=== PATIENT | female | born 1945 | race Caucasian/White ===

== ENCOUNTER → 2016-08-05 | Outpatient (CLI) | payer MEDICARE, MEDICAID | LOC: GMAJ 12:36 | PROVIDERS: ATTEND Family Medicine | DX: I50.9 Heart failure, unspecified (principal) ==

== ENCOUNTER 2017-02-25 18:01 | Emergency (ER) | payer MEDICARE, MEDICAID ==
[2017-02-25 18:20] VITALS: BP 135/67; TEMP 96.2; O2SAT 100
--- NOTE | 2017-02-25 18:42 | ED.PDOC ---
History of Present Illness - General Chief Complaint: Cardiovascular Problem Stated Complaint: low heart rate per HH Time Seen by Provider: 02/25/17 18:32 Source: patient, RN notes reviewed, family Exam Limitations: no limitations Additional Information: Per caregiver, Pt's heart rate was low today (in the 40s) and Pt was less active than usual. Pt denies complaints currently. She does have frequent PVCs on her EKG and Telemetry but she is not in any distress. - History of Present Illness Timing/Duration: 7-24 hours Severity: mild Associated Symptoms: denies symptoms - , but caregiver says "there's something off". Allergies/Adverse Reactions: Allergies NO KNOWN ALLERGY Allergy (Verified 02/25/17 18:21) Home Medications: Ambulatory Orders Albuterol Inhaler [Ventolin Hfa Inhaler] 1 puff INH Q4H PRN 03/09/16 Albuterol Sulfate Nebs [Proventil Nebs] 2.5 mg NEB RTQID PRN 03/09/16 Digoxin [Lanoxin Tab] 0.125 mg PO DAILY 03/09/16 Lasix 80 mg PO DAILY 03/09/16 Loratadine 10 mg PO DAILY 03/09/16 Metformin HCl 500 mg PO DAILY@1700 03/09/16 Plavix 75 mg PO DAILY 03/09/16 Potassium Chloride 10 meq PO BIDFD 03/09/16 Prilosec 40 mg PO ACBK 03/09/16 Zocor 20 mg PO BEDTIME 03/09/16 Duloxetine HCl 60 mg PO DAILY 02/25/17 Review of Systems - Review of Systems Constitutional: States: no symptoms reported EENTM: States: no symptoms reported Respiratory: States: no symptoms reported Cardiology: States: see HPI - asymptomatic but she does have frequent PVCs. Gastrointestinal/Abdominal: States: no symptoms reported Genitourinary: States: no symptoms reported Musculoskeletal: States: no symptoms reported Skin: States: no symptoms reported Neurological: States: no symptoms reported Endocrine: States: no symptoms reported Hematologic/Lymphatic: States: no symptoms reported Past Medical History (General) - Patient Medical History Hx Seizures: No Hx Stroke: No Hx Asthma: No Hx of COPD: No Hx Cardiac Disorders: Yes - s/p CABG Hx Congestive Heart Failure: Yes Hx Pacemaker: No Hx Hypertension: No Hx Diabetes: Yes Hx MRSA: No Surgical History: coronary bypass surgery - Vaccination History Hx Influenza Vaccination: No Hx Pneumococcal Vaccination: Yes - Social History Hx Tobacco Use: No Hx Alcohol Use: No Hx Substance Use: No Hx Physical Abuse: No Hx Emotional Abuse: No Family Medical History - Family History Mother Family History: Unknown Living Status: Age at (years of age): 89 Cause of : CAD Hx Family Asthma: Yes Hx Family Congestive Heart Failure: No Hx Family Hypertension: No Hx Family Stroke: Yes Hx Cardiac Disease: Yes Hx Family Diabetes: No Hx Family Cancer: No Father Age (years): 67 Living Status: Cause of : CHF Hx Family Asthma: No Hx Family Congestive Heart Failure: Yes Hx Family Hypertension: No Hx Family Stroke: Yes Hx Cardiac Disease: Yes Hx Family Diabetes: Yes Hx Family Cancer: No Physical Exam - Physical Exam General Appearance: Alert, Comfortable, No apparent distress, Well Developed, Well Nourished Eyes, Ears, Nose, Throat Exam: PERRL/EOMI, normal ENT inspection, pharynx normal Neck: non-tender, full range of motion, supple, normal inspection Respiratory: no respiratory distress, no accessory muscle use Cardiovascular/Chest: normal peripheral pulses, regular rate, rhythm, extra beats Gastrointestinal/Abdominal: non tender, soft Extremity: non-tender, normal inspection 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 This goes along with labs showing some dehydration. Pt ready for d/c home. Rest of labs reviewed and essentially normal. Strict return precautions given. - Results/Orders Results/Orders: Laboratory Results - last 24 hr 02/25/17 02/25/17 02/25/17 18:45 18:45 18:45 WBC 5.7 RBC 3.74 L Hgb 11.8 L Hct 34.6 L MCV 92.6 MCH 31.5 H MCHC 34.0 RDW 14.4 Plt Count 210 MPV 7.9 Absolute Neuts (auto) 4.00 Absolute Lymphs (auto) 1.10 Absolute Monos (auto) 0.50 Absolute Eos (auto) 0.10 Absolute Basos (auto) 0.00 Neutrophils % 70.5 Lymphocytes % 18.6 L Monocytes % 9.1 H Eosinophils % 1.1 Basophils % 0.7 Sodium 132 L Potassium 4.0 Chloride 97 L Carbon Dioxide 23 Anion Gap 16.0 BUN 42 H Creatinine 1.67 H BUN/Creatinine Ratio 25.1 H Random Glucose 113 H Serum Osmolality 275.8 Calcium 9.9 Phosphorus 3.6 Magnesium 1.9 Total Bilirubin 1.0 AST 36 ALT 35 Alkaline Phosphatase 75 Creatine Kinase 75 CK-MB (CK-2) 2.2 CK-MB (CK-2) % Not Reportable Troponin I 0.03 Serum Total Protein 7.4 Albumin 4.2 Globulin 3.2 Albumin/Globulin Ratio 1.3 Digoxin 2.2 H - EKG/XRAY/CT EKG: Sinus - with frequent PVCs Departure - Departure Clinical Impression: Dehydration Time of Disposition: 19:50 Disposition: Discharge to Home or Self Care Condition: Good Departure Forms: ED Discharge - Pt. Copy, Patient Portal Self Enrollment Instructions: DI for Dehydration -- Adult Referrals: Jigar Jensen MD [Primary Care Provider] - 1-5 Days Home Medications: Ambulatory Orders Albuterol Inhaler [Ventolin Hfa Inhaler] 1 puff INH Q4H PRN 03/09/16 Albuterol Sulfate Nebs [Proventil Nebs] 2.5 mg NEB RTQID PRN 03/09/16 Digoxin [Lanoxin Tab] 0.125 mg PO DAILY 03/09/16 Lasix 80 mg PO DAILY 03/09/16 Loratadine 10 mg PO DAILY 03/09/16 Metformin HCl 500 mg PO DAILY@1700 03/09/16 Plavix 75 mg PO DAILY 03/09/16 Potassium Chloride 10 meq PO BIDFD 03/09/16 Prilosec 40 mg PO ACBK 03/09/16 Zocor 20 mg PO BEDTIME 03/09/16 Duloxetine HCl 60 mg PO DAILY 02/25/17 Additional Instructions: Mild dehydration. Condition improved after eating and drinking. Return to ER if condition worsens/unable to function. Continue routine Cardiology follow-up as scheduled.
== END 2017-02-25 19:51 | disposition home or self-care (01) ==
LOC: ER 18:01
DX: E86.0 Dehydration (principal); I49.3 Ventricular premature depolarization; I50.9 Heart failure, unspecified; E11.9 Type 2 diabetes mellitus without complications; Z95.1 Presence of aortocoronary bypass graft; Z79.02 Long term (current) use of antithrombotics/antiplatelets; Z79.899 Other long term (current) drug therapy

== ENCOUNTER 2017-03-13 20:28 | Inpatient (IN) | payer MEDICARE, MEDICAID ==
[2017-03-13] MEDS ORDERED: ARIPIPRAZOLE 10 MG PO SCH (21:00)
--- NOTE | 2017-03-13 21:51 | RAD ---
Examination: XR CHEST 1 VIEW dated 03/13/2017 9:06 PM [employer] History: chf exac Comparison: 03/10/2016 Technique: Frontal view of the chest Findings: Prominence of the interstitial markings bilaterally with small bilateral pleural effusions and bibasilar atelectasis. The cardiac silhouette projects mildly enlarged. Sequela of prior CABG. Impression: Findings of mild CHF. Electronically signed by: Jigar Wise MD 03/13/2017 9:50 PM [employer]
[2017-03-13] MEDS ORDERED: metOLazone 2.5 MG TAB PO ONE (22:03)
[2017-03-13] MEDS ORDERED: FUROSEMIDE INJ 40 MG/4 ML VIAL IV ONE (22:03)
[2017-03-13] MEDS ORDERED: DIGOXIN 0.25 MG TAB PO ONE (22:03)
--- NOTE | 2017-03-13 22:11 | ED.PDOC ---
History of Present Illness - General Chief Complaint: General Stated Complaint: feeling SOB, weight gain, swelling Time Seen by Provider: 03/13/17 20:51 Source: patient, other - aregiver Exam Limitations: clinical condition - History of Present Illness Initial Comments: the patient is a 72-year-old female presenting to the emergency room with her caregiver secondary to progressive shortness of breath and swelling over the last 3-4 days. The patient does have a history of significant congestive heart failure. She was seen here in the emergency room approximately 10 days ago for a low heart rate down in the 40s. Her caregiver apparently discontinued her digoxin 5 or 6 days ago. She is now according to her caregiver approximately 10-12 pounds above her baseline weight. She does have currently some moderate increased work of breathing. She has pitting edema all the way up the posterior aspect of her legs to her buttocks and she does have some ascites. She has rales at bilateral lung bases and does get significantly short of breath with lying flat. While sitting up she oxygenates well but does still have some increased work of breathing. She has a cough that is productive of a clear sputum. No fevers. No chest pain. No syncope or near syncope. She has been taking Lasix 80 mg each morning. She does see Dr. Jensen here at the clinic. She is actually already scheduled to see her wet machine operator here tomorrow, Dr. Moss. She has a follow-up appointment with her primary care doctor in about 3 days. Timing/Duration: unsure Severity: moderate Improving Factors: nothing Worsening Factors: movement Associated Symptoms: cough, loss of appetite, malaise, shortness of breath, weakness Allergies/Adverse Reactions: Allergies NO KNOWN ALLERGY Allergy (Verified 03/13/17 20:55) Home Medications: Ambulatory Orders Albuterol Inhaler [Ventolin Hfa Inhaler] 1 puff INH Q4H PRN 03/09/16 Albuterol Sulfate Nebs [Proventil Nebs] 2.5 mg NEB RTQID PRN 03/09/16 Lasix 80 mg PO DAILY 03/09/16 Loratadine 10 mg PO DAILY 03/09/16 Metformin HCl 500 mg PO DAILY@1700 03/09/16 Plavix 75 mg PO DAILY 03/09/16 Potassium Chloride 10 meq PO BIDFD 03/09/16 Prilosec 40 mg PO ACBK 03/09/16 Zocor 20 mg PO BEDTIME 03/09/16 Duloxetine HCl 60 mg PO DAILY 02/25/17 Multiple Vitamin [Multi Vitamin] 1 tab PO 03/13/17 Review of Systems - Review of Systems Constitutional: States: malaise EENTM: States: no symptoms reported Respiratory: States: cough, orthopnea, short of breath Cardiology: States: edema Gastrointestinal/Abdominal: States: other - abdominal distention Genitourinary: States: no symptoms reported Musculoskeletal: States: no symptoms reported Skin: States: no symptoms reported Neurological: States: no symptoms reported Endocrine: States: no symptoms reported All other Systems: No Change from Baseline Past Medical History (General) - Patient Medical History Hx Seizures: No Hx Stroke: No Hx Dementia: No Hx Asthma: No Hx of COPD: No Hx Cardiac Disorders: Yes - s/p CABG Hx Congestive Heart Failure: Yes Hx Pacemaker: No Hx Hypertension: No Hx Thyroid Disease: No Hx Diabetes: Yes Hx Gastroesophageal Reflux: No Hx Renal Disease: No Hx Cancer: No Hx of HIV: No Hx Hepatitis C: No Hx MRSA: No Surgical History: other - Vaccination History Hx Tetanus, Diphtheria Vaccination: Yes Hx Influenza Vaccination: No Hx Pneumococcal Vaccination: No - Social History Hx Tobacco Use: No Hx Alcohol Use: No Hx Substance Use: No Hx Substance Use Treatment: No Hx Depression: No Feels Threatened In Home Enviroment: No Feels Threatened In a Relationship: No Hx Physical Abuse: No Hx Emotional Abuse: No Hx Suspected Abuse: No Family Medical History - Family History Mother Family History: Unknown Living Status: Age at (years of age): 93 Cause of : CAD Hx Family Asthma: Yes Hx Family Congestive Heart Failure: No Hx Family Hypertension: No Hx Family Stroke: Yes Hx Cardiac Disease: Yes Hx Family Diabetes: No Hx Family Cancer: No Father Age (years): 67 Living Status: Cause of : CHF Hx Family Asthma: No Hx Family Congestive Heart Failure: Yes Hx Family Hypertension: No Hx Family Stroke: Yes Hx Cardiac Disease: Yes Hx Family Diabetes: Yes Hx Family Cancer: No Physical Exam - Physical Exam General Appearance: Alert, Other - the patient does appear uncomfortable and does have moderate increased work of breathing. Eye Exam: bilateral normal Ears, Nose, Throat: normal ENT inspection, normal pharynx Neck: full range of motion, supple Respiratory: chest non-tender, respiratory distress - mild, decreased breath sounds - t bases along with increased rales at bases, accessory muscle use - mild to moderate, rales Cardiovascular/Chest: normal peripheral pulses, regular rate, rhythm - sinus rhythm on telemetry with frequent PACsand intermittent PVCs Peripheral Pulses: radial,right: 2+, radial,left: 2+, dorsalis pedis,right: 2+, dorsalis pedis,left: 2+ Gastrointestinal/Abdominal: non tender, soft, other - moderate ascites Rectal Exam: deferred Back Exam: no CVA tenderness, no vertebral tenderness Extremity: normal range of motion, non-tender, no calf tenderness, normal capillary refill, pedal edema 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 The patient has significant pleural effusions, ascites and peripheral edema. The patient is not hypoxic while sitting up however has a difficult time breathing when laying back. She has significant increased work of breathing with any activity. She does have shortness of breath even while sitting still. She is not having any chest pain. The patient does have significant hyponatremia as well to start with along with significant chronic renal insufficiency. For these reasons the patient will be brought in and managed as an inpatient to make sure that she does improve rather than worsen and that her sodium does not fall further with diuresis. The patient is receiving a dose of IV Lasix and oral metolazone. She 'll be placed on oxygen to reduce cardiac strain.fluid and salt restrictions will be maintained. She has also been restarted on a half dose of her digoxin. - Results/Orders Results/Orders: Laboratory Tests 03/13/17 03/13/17 03/13/17 21:15 21:15 21:15 WBC 7.9 RBC 3.91 L Hgb 12.1 Hct 35.3 L MCV 90.3 MCH 30.9 MCHC 34.4 RDW 15.1 H Plt Count 227 MPV 7.4 Absolute Neuts (auto) 6.10 Absolute Lymphs (auto) 1.00 Absolute Monos (auto) 0.50 Absolute Eos (auto) 0.10 Absolute Basos (auto) 0.10 Neutrophils % 78.2 H Lymphocytes % 12.6 L Monocytes % 6.9 Eosinophils % 1.2 Basophils % 1.1 Sodium 127 L Potassium 4.3 Chloride 92 L Carbon Dioxide 23 Anion Gap 16.3 BUN 35 H Creatinine 1.79 H BUN/Creatinine Ratio 19.6 Random Glucose 114 H Serum Osmolality 264.1 L Calcium 9.4 Magnesium 1.9 Total Bilirubin 1.0 AST 39 ALT 30 Alkaline Phosphatase 84 Creatine Kinase 167 H CK-MB (CK-2) 3.6 CK-MB (CK-2) % Not Reportable Troponin I 0.04 B-Natriuretic Peptide 802.0 H* Serum Total Protein 7.4 Albumin 4.0 Globulin 3.4 Albumin/Globulin Ratio 1.2 Urine Color Urine Appearance Urine pH Ur Specific [place] Urine Protein Urine Glucose (UA) Urine Ketones Urine Blood Urine Nitrite Urine Bilirubin Urine Urobilinogen Ur Leukocyte Esterase Urine RBC Urine WBC Ur Epithelial Cells Urine Bacteria 03/13/17 21:44 WBC RBC Hgb Hct MCV MCH MCHC RDW Plt Count MPV Absolute Neuts (auto) Absolute Lymphs (auto) Absolute Monos (auto) Absolute Eos (auto) Absolute Basos (auto) Neutrophils % Lymphocytes % Monocytes % Eosinophils % Basophils % Sodium Potassium Chloride Carbon Dioxide Anion Gap BUN Creatinine BUN/Creatinine Ratio Random Glucose Serum Osmolality Calcium Magnesium Total Bilirubin AST ALT Alkaline Phosphatase Creatine Kinase CK-MB (CK-2) CK-MB (CK-2) % Troponin I B-Natriuretic Peptide Serum Total Protein Albumin Globulin Albumin/Globulin Ratio Urine Color Yellow Urine Appearance Clear Urine pH 6.0 Ur Specific [place] <= 1.005 Urine Protein Negative Urine Glucose (UA) Negative Urine Ketones Negative Urine Blood Negative Urine Nitrite Negative Urine Bilirubin Negative Urine Urobilinogen 0.2 Ur Leukocyte Esterase Negative Urine RBC 0 Urine WBC 0-1 Ur Epithelial Cells 0-1 Urine Bacteria Rare chest x-rays consistent with mild to moderate CHF with pleural effusions and increased pulmonary vascularization. Departure - Departure Clinical Impression: Hyponatremia, Chronic renal insufficiency, stage III (moderate) Acute exacerbation of CHF (congestive heart failure) Qualifiers: Congestive heart failure type: unspecified congestive heart failure type Qualified Code(s): I50.9 - Heart failure, unspecified Disposition: Admit Patient Home Medications: Ambulatory Orders Albuterol Inhaler [Ventolin Hfa Inhaler] 1 puff INH Q4H PRN 03/09/16 Albuterol Sulfate Nebs [Proventil Nebs] 2.5 mg NEB RTQID PRN 03/09/16 Lasix 80 mg PO DAILY 03/09/16 Loratadine 10 mg PO DAILY 03/09/16 Metformin HCl 500 mg PO DAILY@1700 03/09/16 Plavix 75 mg PO DAILY 03/09/16 Potassium Chloride 10 meq PO BIDFD 03/09/16 Prilosec 40 mg PO ACBK 03/09/16 Zocor 20 mg PO BEDTIME 03/09/16 Duloxetine HCl 60 mg PO DAILY 02/25/17 Multiple Vitamin [Multi Vitamin] 1 tab PO 03/13/17 Decision To Admit - Decistion To Admit Decision to Admit Reason: Medical Nature Decision to Admit Date: 03/13/17 Decision to Admit Time: 22:18
--- NOTE | 2017-03-13 22:35 | HP ---
SUPERVISING PHYSICIAN: Jadon Salas MD CHIEF COMPLAINT: Short of breath, weight gain, edema. HISTORY OF PRESENT ILLNESS: Ms. Joyce is a 72 year-old patient that presented to the Emergency Room today with her caregiver due to some progressive worsening shortness of breath and swelling that has been occurring over the last 3 or 4 days. She does have a significant history of congestive heart failure and takes 80 of Lasix daily. She had previously been in the Emergency Room in the last 10 days for a low heart rate in the 40s and at some point her caregiver apparently decided that she needed to be taken off her digoxin which she did about 5 to 6 days previously. Her caregiver notes that she has well over a 10 to 12 pound weight gain above her baseline weight in the last week. It was noted in the Emergency Room, she had some pitting edema that was extending up to her buttocks and some mild abdominal distention. She was having some difficulty with maintaining 02 saturations in the supine position as well as showing a significant desaturation with any exertional effort. She has had a cough with clear productive sputum but no fevers or chest pains. No syncopal episodes. Her laboratory studies in the Emergency Department showed she had a white count of 7,900 with a hemoglobin of 12.1 and hematocrit 35.3 with chemistries showing an elevated BNP at 802, troponin normal at 0.04. She is noted to be hyponatremic with a sodium of 127 and serum osmolality of 264. Liver functions showed to be within normal limits. TSH was elevated at 6.62. Radiographic studies included a chest x-ray and per radiology interpretation of a single view chest, there was noted a prominence in interstitial markings bilaterally with small bilateral pleural effusions and bibasilar atelectasis with a mildly enlarged cardiac silhouette with mild congestive heart failure. Given her exacerbation and congestive heart failure, Emergency Room physician, Dr. Salas, requested the patient be admitted to the hospital for further observation, close monitoring and further treatment. Prior to admission,keanu velasco was given 40 of Lasix IV and 5 mg of Zaroxolyn p.o. with digoxin p.o. at 0.0625. She is admitted in stable condition. PAST MEDICAL HISTORY: 1. Chronic congestive heart failure without a current echocardiogram for review at time of admission. 2. Coronary artery disease. 3. Diabetes mellitus type 2, on oral therapy. 4. Hypertension. 5. Chronic anemia with a normocytic normochromic presentation. 6. Seasonal allergies. 7. Mild mental retardation. PAST SURGICAL HISTORY: 1. Coronary artery bypass graft. 2. Coronary stent placement. CURRENT MEDICATIONS: 1. Januvia 100 mg daily. 2. Simvastatin 20 mg at bedtime. 3. Micro-K 10 mEq b.i.d. 4. Omeprazole 40 mg daily. 5. Multivitamin 1 tablet daily. 6. Metformin 500 mg daily. 7. Loratadine 10 mg at bedtime. 8. Lasix 80 mg daily. 9. Duloxetine 60 mg daily. 10. Digoxin 0.125 mg daily. 11. Plavix 75 mg daily. 12. Cinnamon 2000 mg daily. 13. Aripiprazole 10 mg at bedtime,. 14. Proventil nebs 2.5 mg nebulizer q.i.d. as needed. 15. Ventolin handheld inhaler 1 puff q.i.d. as needed every 4 hours as needed p.r.n. ALLERGIES: NO KNOWN DRUG ALLERGIES. FAMILY HISTORY: Significant for cancers, coronary artery disease, diabetes and strokes. SOCIAL HISTORY: The patient lives at home with her caregiver. She has no history of smoking and does not drink alcoholic beverages. REVIEW OF SYSTEMS: CONSTITUTIONAL: General malaise with unintentional weight gain of 10 to 12 pounds from baseline weight in the last 2 weeks. HEENT: No nasal congestion, headaches, vision changes. RESPIRATORY: Significant for a cough, nonproductive with orthopnea and increased dyspnea on exertion. CARDIOVASCULAR: Noted peripheral edema bilaterally with no reported chest pains , palpitations or syncopal episodes. GASTROINTESTINAL: Mild abdominal distention but no abdominal pain, nausea, vomiting, diarrhea or change in bowel habits. GENITOURINARY: No dysuria, hematuria, polyuria or other urinary symptoms. NEUROLOGICAL: She is alert to herself and caregivers and location. No reported neurological deficits, no syncopal episodes, no vision changes. No hearing deficits. PHYSICAL EXAMINATION: VITAL SIGNS: Temperature on admission 98.2, pulse 97, blood pressure 134/81, respirations 18, saturation 100% on room air at rest. Admission weight 54.5 kg. GENERAL: The patient is alert and oriented, she appears somewhat dyspneic but is able to speak in full sentences. She appears to be in no acute distress. HEENT: Tympanic membranes are clear bilaterally. Pharynx is pink and moist without any lesions. NECK: Supple, non-tender with full range of motion. No jugular venous distention. CHEST: Some rales in bilateral bases with decreased breath sounds throughout. No wheezing or rhonchi. CARDIOVASCULAR: Regular rate and rhythm without appreciable murmurs, rubs, or gallops. ABDOMEN: Soft, non-tender, mildly distended but soft without any rebound tenderness. Bowel sounds are present. . EXTREMITIES: There is nonpitting edema to bilateral lower extremities. NEUROLOGIC: Cranial nerves II through XII are grossly intact. She is alert and oriented x 3. She does have a very flat affect but interacts appropriately with caregivers. LABORATORY: White count on admission was 7,900 with hemoglobin 12.1, hematocrit 35.3, platelet count 227,000, differential shows to be without a left shift. PT with slight elevation at 14.9, PTT elevated at 59.6. Chemistries showed a hyponatremia with a sodium of 127, potassium 4.3, BUN elevated at 35, creatinine up to 1.79. Liver functions also showed to be within normal limits. Troponin 0.04. BNP elevated at 802, TSH elevated at 6.62. Urinalysis showed to be within normal limits. Digoxin level is loess than 0.03. RADIOLOGY: Chest x-ray per radiology interpretation, single view chest shows prominent interstitial markings bilaterally with small pleural effusions. Findings consistent with mild congestive heart failure. ASSESSMENT: 1. Acute on chronic exacerbation of congestive heart failure, unknown type with no echocardiogram available for review currently. Etiology secondary to excessive water intake and poor medical compliance with digoxin. 2. Moderate electrolyte imbalance with a hyponatremia secondary to acute fluid overload. 3. Coronary artery disease. 4. Diabetes mellitus type 2 on oral therapy. 5. Hypertension. 6. Chronic seasonal allergies. 7. Chronic anemia with a normocytic normochromic presentation. PLAN: The patient is to be admitted to the medical/surgical floor for ongoing treatment of exacerbation of congestive heart failure. She will be on fluid restriction to 1500 cc less a day as well as salt restrictions. We will go ahead and diurese her with additional Lasix of 40 every 8 hours and monitor her labs closely and her output. She will be given supplemental oxygen as needed. I will go ahead and start her on low-dose nitro patch of 0.2. Will resume her home medications once they have been updated and verified. She will be on DVT prophylaxis as per protocol, plan to repeat laboratory studies and watch her closely in anticipation of length of stay to be at least 2 to 3 days. Until discharge, we will continue to monitor her closely and treat appropriately. She does have an appointment with Dr. Moss already scheduled int he morning. We will follow with this and make sure she has a consultation in the morning with Dr. Moss if possible. #[id number] [facility]
[2017-03-13] MEDS ORDERED: SODIUM CHLORIDE 0.9% (FLUSH) 10 ML SYG IV PRN (22:40)
[2017-03-13] MEDS ORDERED: NITROGLYCERIN 0.4 MG 25 EA TAB SL PRN (22:40)
[2017-03-13] MEDS ORDERED: IV SET AND CAP CHANGE INJ INJ SCH (23:00)
[2017-03-13] MEDS ORDERED: DEXTROSE 50% 25 GM/50 ML SYG IV PRN (23:35)
[2017-03-13] MEDS ORDERED: GLUCAGON INJ 1 MG VIAL SUBCU PRN (23:35)
[2017-03-13] MEDS ORDERED: ARIPiprazole 5 MG TAB ONE (23:52)
[2017-03-13] MEDS: LORATADINE 10 MG TAB PO SCH (23:55)
--- NOTE | 2017-03-14 00:15 | PCM.CORE ---
Physician DVT/VTE - Nurse DVT Assessment & Total Each Risk Factor Represents 3 Points: Medical PT with Hx of IN, CHF, Severe infection/sepsis Each Risk Factor Represents 2 Points: Age 60-74 Each Risk Factor is 1 Point: Varicose Veins/Edema Legs DVT Assessment Score: 6 - 5 or more Very High Risk Treatments: Early Ambulation *, Sequential Compression Device Pharmacological: Enoxaparin 40mg SQ Daily
[2017-03-14] MEDS: FUROSEMIDE INJ 40 MG/4 ML VIAL IV SCH ×2 (05:50→13:43)
--- NOTE | 2017-03-14 06:43 | RAD ---
EXAM: Two view chest. INDICATION: CHF. COMPARISON: Chest x-ray: 03/13/2017. FINDINGS: There is mild pulmonary vascular congestion with interstitial edema. Small pleural effusions are present. Heart is enlarged. There is no pneumothorax. Median sternotomy wires are noted. IMPRESSION: Mild CHF exacerbation, similar to the prior Electronically signed by: Kayden Samuels MD 03/14/2017 6:42 AM [employer] Workstation: [employer]
[2017-03-14] MEDS ORDERED: DULoxetine HCL 30 MG CAP PO ONE (06:59)
[2017-03-14] MEDS ORDERED: POTASSIUM CHLORIDE 10 MEQ TAB PO ONE (07:01)
[2017-03-14] MEDS ORDERED: FUROSEMIDE 40 MG TAB ONE (07:01)
[2017-03-14] MEDS ORDERED: OMEPRAZOLE CAP 20 MG CAP ONE (07:01)
[2017-03-14] MEDS ORDERED: SITagliptin 50 MG TAB PO ONE (07:01)
[2017-03-14] MEDS ORDERED: ENOXAPARIN SODIUM 30 MG/0.3 ML SYG SUBCU ONE (07:02)
[2017-03-14] MEDS: INSULIN LISPRO 100 UNITS/ML PEN SUBCU SCH ×4 (07:12→21:04)
[2017-03-14] MEDS: CLOPIDOGREL 75 MG TAB PO SCH (08:02)
[2017-03-14] MEDS: ENOXAPARIN SODIUM 30 MG/0.3 ML SYG SUBCU SCH (08:48)
[2017-03-14] MEDS: DULoxetine HCL 30 MG CAP PO SCH (08:48)
[2017-03-14] MEDS: SITagliptin 50 MG TAB PO SCH (08:48)
[2017-03-14] MEDS: POTASSIUM CHLORIDE 10 MEQ TAB PO SCH ×2 (08:51→17:02)
[2017-03-14] MEDS: PANTOPRAZOLE SODIUM TAB 40 MG PO SCH (08:58)
[2017-03-14] MEDS: MULTIPLE VITAMIN 1 EA TAB PO SCH (08:58)
[2017-03-14] MEDS: FUROSEMIDE 40 MG TAB PO SCH (08:58)
[2017-03-14] MEDS ORDERED: NON-FORMULARY MEDICATION 1 EA MIS (Omeprazole [Omeprazole] 40 MG) PO SCH (09:00)
[2017-03-14] MEDS ORDERED: DIGOXIN 0.125 MG TAB PO SCH (09:00)
[2017-03-14] MEDS ORDERED: ENOXAPARIN SODIUM 40 MG/0.4 ML SYG SUBCU SCH (09:00)
[2017-03-14] MEDS ORDERED: CINNAMON PO SCH (09:00)
[2017-03-14] MEDS: ACETAMINOPHEN 325 MG TAB PO PRN (11:17)
--- NOTE | 2017-03-14 20:33 | PN ---
DATE: 03/14/17 SUPERVISING PHYSICIAN: Jadon Salas M.D. SUBJECTIVE: The patient is showing much less edema today compared to admission. Her work to breathe is significantly decreased. She continues to be somewhat short of breath with exertional effort and has good results with IV Lasix. The patient did go see Dr. Moss today in the clinic. OBJECTIVE: VITAL SIGNS: Temperature 97.8, pulse 88, blood pressure 110/73, respirations 20, satting 98% on room air. I's and O's show a negative balance of 3280. Her weight has gone down from admission of 55.3 to 54.6 kg. CHEST: Lungs are diminished towards the bases with just very faint rale heard bilaterally but much improved from previous days. No rhonchi or wheezing. HEART: Regular rate and rhythm. ABDOMEN: Soft, non-tender. Positive bowel sounds. EXTREMITIES: There is no edema noted today. NEUROLOGIC: She is alert and oriented times three. LABORATORY: Sodium remain low at 127, potassium 3.8, BUN 36, creatinine 1.75, glucose has been 114 to 176, calcium 9.4. Echocardiogram from Dr. Moss' office shows an ejection fraction of 40 to 55% with moderate to severe pulmonary hypertension. RADIOLOGY: Chest x-ray today shows a mild congestive heart failure exacerbation similar to prior films. ASSESSMENT: 1. Acute on chronic congestive heart failure with moderately severe dilated cardiomyopathy and significant valvular dysfunction exacerbated by excessive water intake and poor medical compliance with Digoxin. 2. Moderate electrolyte imbalance with hyponatremia secondary to acute fluid overload. 3. Coronary artery disease. 4. Diabetes mellitus type 2 on oral therapy. 5. Hypertension. 6. Seasonal allergies. 7. Chronic anemia with a normocytic normochromic presentation. PLAN: The patient is doing well. Will continue with Lasix at 40 mg every 8 hours today and then transition her to 80 mg daily p.o. in the morning. She will continue on a fluid restriction of 1500 mL or less a day with salt restriction as well. I will keep her Nitro patch on until the morning until we can clinically reassess. Will repeat chest x-ray in the morning as well as laboratory studies to fully evaluate electrolytes and monitor her I's and O's closely. Anticipate hopefully being able to discharge tomorrow. Until then, will continue to monitor and treat appropriately. #[id number] [facility]
[2017-03-14] MEDS: SIMVASTATIN 20 MG TAB PO SCH (21:04)
[2017-03-14] MEDS: ARIPiprazole 5 MG TAB PO SCH (21:04)
[2017-03-14] MEDS: LORATADINE 10 MG TAB PO SCH (21:04)
[2017-03-14] MEDS ORDERED: diphenhydrAMINE HCL 25 MG CAP PO ONE (22:59)
[2017-03-15] MEDS: PANTOPRAZOLE SODIUM TAB 40 MG PO SCH (06:36)
--- NOTE | 2017-03-15 07:12 | RAD ---
Procedure: XR CHEST 2 VIEWS Exam Date: 03/15/2017 Ordering Provider: Pawel Craig NP Clinical Indication: chf Comparison: 03/14/2017 Findings: Residuals of thoracic surgery. Cardiomediastinal silhouette is stable. Focal lung consolidation: Improving bibasilar opacities. Pleural effusion: Small bilateral pleural effusions. Pneumothorax: None Bones and soft tissues: Nonacute Impression: 1. Improving CHF with small bilateral pleural effusions. Electronically signed by: Madi Harrison MD 03/15/2017 7:10 AM [facility]
[2017-03-15] MEDS: ACETAMINOPHEN 325 MG TAB PO PRN ×2 (07:45→20:29)
[2017-03-15] MEDS: INSULIN LISPRO 100 UNITS/ML PEN SUBCU SCH ×4 (08:10→22:07)
[2017-03-15] MEDS: DULoxetine HCL 30 MG CAP PO SCH (08:30)
[2017-03-15] MEDS: CLOPIDOGREL 75 MG TAB PO SCH (08:35)
[2017-03-15] MEDS: POTASSIUM CHLORIDE 10 MEQ TAB PO SCH ×2 (08:36→17:28)
[2017-03-15] MEDS: ENOXAPARIN SODIUM 30 MG/0.3 ML SYG SUBCU SCH (08:36)
[2017-03-15] MEDS: MULTIPLE VITAMIN 1 EA TAB PO SCH (09:25)
[2017-03-15] MEDS: SITagliptin 50 MG TAB PO SCH (09:25)
[2017-03-15] MEDS: FUROSEMIDE 40 MG TAB PO SCH (09:25)
[2017-03-15] MEDS: DIGOXIN 0.125 MG TAB PO SCH (12:32)
[2017-03-15] MEDS ORDERED: LISINOPRIL 5 MG TAB PO ONE (13:32)
--- NOTE | 2017-03-15 15:11 | PN ---
DATE: SUPERVISING PHYSICIAN: Jadon Salas M.D. SUBJECTIVE: The patient is sitting up on the side of her bed. She has no complaints of shortness of breath, chest pain, nausea, vomiting or diarrhea. OBJECTIVE: VITAL SIGNS: She is afebrile, heart rate 88, blood pressure 128/71, respiratory rate 18, O2 sat is 94% on room air. RESPIRATORY: Essentially clear to auscultation bilaterally. There are a few scattered crackles in the left upper lobe. CARDIAC: Regular rate and rhythm. ABDOMEN: Soft, nondistended, non -tender. Bowel sounds are positive. EXTREMITIES: No cyanosis, clubbing or edema. NEUROLOGIC: She is awake and alert, oriented times three. LABORATORY: Sodium 128, potassium 3.6, chloride 91, carbon dioxide 26, BUN 51, creatinine 1.78. Serum osmolality has improved to 274.7. White count 6, hemoglobin 11.5, hematocrit 34.1. RADIOLOGY: Chest x-ray shows improving congestive heart failure with small bilateral pleural effusions. All other labs and films have been reviewed via the EMR. ASSESSMENT: 1. Acute on chronic congestive heart failure with moderate to severe dilated cardiomyopathy and significant valvular dysfunction exacerbated be excessive water intake and poor medical compliance with digoxin. 2. Moderate electrolyte imbalance with hyponatremia secondary to acute fluid overload that has improved. 3. Coronary artery disease. 4. Diabetes mellitus type 2 on oral therapy. 5. Hypertension. 6. Seasonal allergies. 7. Chronic anemia with normocytic normochromic presentation. PLAN: We will continue present supportive care. She saw Dr. Moss yesterday and he recommended that we start her on Coreg and Lisinopril, so I have started a low dose of Coreg at 3.125 mg b.i.d. and Lisinopril 5 mg daily. I have also ordered dry trays in addition to her fluid restrictions. I will recheck her electrolytes in the morning. Will monitor how she does on the new medications and send her home tomorrow. She will also continue on the digoxin at this time and will need a followup with Dr. Moss as well as Dr. Jensen on discharge. Will continue to monitor closely and follow as needed. Dr. Salas is the collaborating physician available for consultation. #[id number] [facility]
[2017-03-15] MEDS ORDERED: LISINOPRIL 5 MG TAB ONE (15:48)
[2017-03-15] MEDS: CARVEDILOL 3.125 MG TAB PO SCH ×2 (17:28→20:30)
[2017-03-15] MEDS: ARIPiprazole 5 MG TAB PO SCH (20:29)
[2017-03-15] MEDS: SIMVASTATIN 20 MG TAB PO SCH (20:30)
[2017-03-15] MEDS: LORATADINE 10 MG TAB PO SCH (20:30)
[2017-03-16] MEDS: PANTOPRAZOLE SODIUM TAB 40 MG PO SCH (06:24)
[2017-03-16] MEDS: INSULIN LISPRO 100 UNITS/ML PEN SUBCU SCH ×2 (08:18→12:30)
[2017-03-16] MEDS: POTASSIUM CHLORIDE 10 MEQ TAB PO SCH (08:18)
[2017-03-16] MEDS: DULoxetine HCL 30 MG CAP PO SCH (08:59)
[2017-03-16] MEDS: CLOPIDOGREL 75 MG TAB PO SCH (08:59)
[2017-03-16] MEDS: SITagliptin 50 MG TAB PO SCH (08:59)
[2017-03-16] MEDS: CARVEDILOL 3.125 MG TAB PO SCH (08:59)
[2017-03-16] MEDS: FUROSEMIDE 40 MG TAB PO SCH (08:59)
--- NOTE | 2017-03-16 08:59 | DS ---
SUPERVISING PHYSICIAN: Jadon Salas MD DISCHARGE DIAGNOSIS: 1. Acute on chronic congestive heart failure with moderate to severe dilated cardiomyopathy and significant valvular dysfunction exacerbated be excessive water intake and poor medical compliance with digoxin. 2. Moderate electrolyte imbalance with hyponatremia secondary to acute fluid overload, improved. 3. Coronary artery disease. 4. Diabetes mellitus, type 2, on oral therapy. 5. Hypertension. 6. Seasonal allergies. 7. Chronic anemia with normocytic/normochromic presentation. HISTORY OF PRESENT ILLNESS: This is a 72-year-old female patient that presented to the Emergency Room on the day of admission with her caregiver due to some progressive worsening shortness of breath and swelling that had occurred the last prior 3 to 4 days. She has a significant history of congestive heart failure and takes about 80 mg of Lasix daily. She had been in the Emergency Room in the previous 10 days for a low heart rate in the 40s and at some point her caregiver apparently decided that she needed to be taken off her digoxin, which she did about 5 to 6 days prior to her admission. Her caregiver also notes that she has had approximately a 10 to 12 pound weight gain above her baseline weight in the last week. It was noted in the Emergency Room, she had some pitting edema that was extending up to her buttocks and some mild abdominal distention. She was having some difficulty with maintaining 02 saturations when lying down and showed a significant desaturation with any exertional effort. She had a cough with clear productive sputum, but no fevers or chest pains, no syncopal episodes. Her laboratory studies in the Emergency Department showed she had a white count of 7,900 with a hemoglobin of 12.1 and hematocrit 35.3 with chemistries showing an elevated BNP at 802, troponin normal at 0.04. She was hyponatremic with a sodium of 127 and serum osmolality of 264. Liver functions were within normal limits. TSH was elevated at 6.62. Radiographic studies included a chest x-ray and and there was noted a prominence in interstitial markings bilaterally with small bilateral pleural effusions and bibasilar atelectasis with a mildly enlarged cardiac silhouette with mild congestive heart failure. The patient was admitted to the hospital. Prior to admission, she was given Lasix 40 mg, Zaroxolyn 5 mg and dig p.o. at 0.0625. She was admitted in stable condition. HOSPITAL COURSE: She was diuresed quite heavily over her hospital stay. She saw Dr. Moss and he recommended she be place on a low dose of Coreg as well as an RIDDHI inhibitor for congestive heart failure. At this time, we do not have the echocardiogram report from Dr. Moss' office, but we have his recommendations. Her vital signs remained stable. Her dyspnea is mostly resolved. She continues to have a low sodium in the 127 to 128 range in spite of her fluid restrictions. Her potassium has been stable as well with a creatinine of approximately 1.8 with a baseline of about 1.6 to 1.7. She will be discharged home today in stable condition. DISCHARGE PLAN: The patient will be discharged home in stable condition. She is to resume her previous diet which includes a fluid restriction of about 1500 mL per day. She is to continue taking her digoxin as well as Coreg and lisinopril. She is to have a followup with her primary care physician, Jigar Jensen MD, in the next 2 weeks. It is unclear whether she has home health, so we will need to figure out her home health status prior to discharge. Otherwise, she is to followup with Dr. Jensen or return to the hospital for any problems or complications. DISCHARGE MEDICATIONS: 1. Proventil nebulizer. 2. Albuterol inhaler. 3. Loratadine. 4. Duloxetine. 5. Multivitamin. 6. Januvia. 7. Abilify. 8. Cinnamon. 9. Metformin. 10. Simvastatin. 11. Omeprazole. 12. Micro-K. 13. Plavix. 14. Lasix. 15. Digoxin. 16. Carvedilol. 17. Lisinopril. Dr. Salas is the collaborating physician and available for consultation. #[id number] [facility]
[2017-03-16] MEDS: MULTIPLE VITAMIN 1 EA TAB PO SCH (09:00)
[2017-03-16] MEDS: ENOXAPARIN SODIUM 30 MG/0.3 ML SYG SUBCU SCH (09:00)
[2017-03-16 11:31] VITALS: BP 110/77; TEMP 97.8; O2SAT 98
[2017-03-16] MEDS: DIGOXIN 0.125 MG TAB PO SCH (12:32)
== END 2017-03-16 12:40 | disposition home health service (06) | DRG 292 ==
LOC: ER 20:28 → OBSVTOIN 22:34 → MS 22:34
PROVIDERS: ADMIT Nurse Practitioner Family; ATTEND Nurse Practitioner Acute Care
DX: I13.0 Hypertensive heart and chronic kidney disease with heart failure and stage 1 through stage 4 chronic kidney disease, or unspecified chronic kidney disease (principal); E87.1 Hypo-osmolality and hyponatremia; I50.9 Heart failure, unspecified; N18.3 Chronic kidney disease, stage 3 (moderate); I25.10 Atherosclerotic heart disease of native coronary artery without angina pectoris; E11.9 Type 2 diabetes mellitus without complications; D64.9 Anemia, unspecified; J30.2 Other seasonal allergic rhinitis; I42.0 Dilated cardiomyopathy; Z79.02 Long term (current) use of antithrombotics/antiplatelets; Z79.84 Long term (current) use of oral hypoglycemic drugs; Z95.1 Presence of aortocoronary bypass graft

== ENCOUNTER → 2017-04-10 | Outpatient (CLI) | payer MEDICARE, MEDICAID | END | disposition home or self-care (01) | LOC: GMAJ 15:28 | PROVIDERS: ATTEND Family Medicine | DX: I50.9 Heart failure, unspecified (principal) ==

== ENCOUNTER → 2017-04-11 | Outpatient (CLI) | payer MEDICARE, MEDICAID ==
--- NOTE | 2017-04-14 10:32 | MAM ---
EXAM DESCRIPTION: 3D Screening BILATERAL : Digital Mammography. CLINICAL HISTORY: 72 years Female SCREENING . No complaints. No family history of breast cancer. Postmenopausal. No HRT. COMPARISON: 2-D digital screening bilateral study on 10/16/2012.. No prior reports available. TECHNIQUE: Bilateral CC and MLO projection full-field images, 3-D tomosynthesis digital mammographic technique. Also bilateral synthesized CC/ MLO full-field images. CAD not utilized. FINDINGS: The breast parenchymal density pattern is: Extremely dense breast tissue, which lowers the sensitivity of mammography. No nipple retraction Bilateral symmetric skin thickening. New bilateral groups of heterogeneous calcifications are seen since the prior study similar to pre-existing groups of heterogeneous calcifications. Calcifications are almost predominantly round with varying sizes. Also bilateral solitary microcalcifications. No focal, stellate mass or density, focal asymmetry , and no suspicious microcalcifications bilaterally. Stable mammograms compared to prior study, taking into account differences in mammographic technique IMPRESSION: BI-RADS CATEGORY: 0 - INCOMPLETE- Need additional imaging evaluation. FOLLOW-UP: Recall for additional imaging: Bilateral 3-D tomosynthesis full field LM images and bilateral targeted breast ultrasound. Written communication concerning the IMPRESSION and Follow-up, will be mailed to the patient and referring health care provider. Electronically signed by: Meek Barrera MD 04/14/2017 10:31 AM [employer]
== END ==
LOC: MAMMO 16:38
PROVIDERS: ATTEND Family Medicine
DX: Z12.31 Encounter for screening mammogram for malignant neoplasm of breast (principal)
CPT/HCPCS: 77063; G0202

== ENCOUNTER 2017-04-17 16:07 | Inpatient (IN) | payer MEDICARE, MEDICAID ==
--- NOTE | 2017-04-17 16:08 | HP ---
HISTORY OF PRESENT ILLNESS: This 72 year-old white female is a direct admission from Dr. Jensen' office. He last saw her in the clinic about a week before and she had some slight improvement in her chest x-ray, but did have persistence of the bilateral effusions. She has seen Dr. Moss approximately a week ago and Digoxin and potassium were decreased, and she was started on Spironolactone with her Lasix decreased from 80 in the morning and evening to 80 in the morning and 40 at night. She has been on fluid restrictions. Very poor appetite. Slight weight gain noted recently. She generally feels worse with shortness of breath even at rest but worse on exertion. She is cared for by her niece at home. Last month she was in [facility] and had congestive heart failure with hyponatremia. She was discharged after a short observation stay and while visiting a prosecuting attorney clinic in [place] with her niece, had to be entered into the hospital in [place] for 11 days and was not getting better. She eventually was referred to [facility] in [place] with congestive heart failure and pneumonia for an additional 7 to 10 days, the actual records of which we are requesting. The fact that she has been in the hospital now 4 times recently in the last month and is getting worse requires specific intervention and assistance as possible. Awaiting on repeat chest x- ray to see if therapeutic thoracentesis may assist in some of her significant dyspnea. She does have orthopnea. She has pedal edema. PAST MEDICAL HISTORY: 1. Worsening congestive heart failure with the actual echocardiogram showing the etiology of which is still not available. Recent beta natriuretic peptide was 1,780. Worsening symptoms with further cardiological intervention and followup suggested. 2. History of hyponatremia, severe, results 125. 3. Recent renal insufficiency. 4. Diabetes mellitus type 2. 5. History of hypertension. 6. History of coronary artery disease with bypass grafting into 4 vessels in the past. PAST SURGICAL HISTORY: 1. Coronary artery bypass grafting to 4 vessels. CURRENT MEDICATIONS: ALLERGIES: FAMILY HISTORY: Positive for coronary artery disease, strokes and diabetes. 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 REVIEW OF SYSTEMS: Recent weight gain recently. No fever or chills. HEENT: No hearing or vision deficits otherwise evident. LUNGS: Worsening shortness of breath especially aggravated by exertion. CARDIOVASCULAR: No significant chest pain but an occasional irregular pulse evident. GASTROINTESTINAL: Appetite is down. She has had some nausea. She has frequent belching and burping. Somewhat constipated. No blood in the stools. GENITOURINARY: No dysuria. EXTREMITIES: Some increasing edema state is noted. NEUROLOGIC: No focal weakness is evident but she is weak generally. PHYSICAL EXAMINATION: VITAL SIGNS: Afebrile, pulse 74, blood pressure 110/77, respirations 17, room air 95% saturation. Weight 63.5 kilos on bed scale. GENERAL: The patient is fairly alert, though has a history of mental retardation since a child. The niece is present to assist with obtaining the history. HEENT: Unremarkable. NECK: Supple. No adenopathy. No carotid bruits. CHEST: Lungs have some diminished breath sounds bilaterally. The patient is able to take fairly deep breaths with some clearing of some basilar rhonchi, especially on the right with deep breathing. CARDIOVASCULAR: Has some irregular beats with rhythm strip showing ventricular bigeminy. ABDOMEN: Mainly soft with no organomegaly, masses or tenderness. Bowel tones are somewhat diminished. EXTREMITIES: There is about a 2 to 3+ pitting edema both lower extremities, fairly good range of motion. NEUROLOGIC: No focal neurological deficits. The patient is pleasant and is able to carry on a fairly good conversation and is fairly aware of her past history. LABORATORY: BNP is 1,090 and sodium is 125 on preliminary results of laboratory tests requested. RADIOLOGY: Chest x-ray is pending. ASSESSMENT: 1. Chronic congestive heart failure of undetermined type with elevated beta natriuretic peptide with an acute exacerbation. 2. Bilateral pleural effusions apparently worsening with repeat x-rays pending at this time. The patient may benefit from therapeutic thoracentesis to be evaluated. 3. Hyponatremia, results 125. 4. Chronic mental retardation since a child. 5. Hypertension. 6. Diabetes mellitus type 2. 7. Chronic renal insufficiency. 8. Coronary artery disease with coronary bypass grafting to 4 vessels. 9. Acute dysrhythmia with ventricular bigeminy and frequent PVCs of a unifocal nature. PLAN: The patient is admitted for gentle diuresis and reevaluation. Dr. Higgins has been consulted to evaluate as to whether thoracentesis would assist with her ongoing symptoms. Try to get a sputum test. Try low dose of Nitroglycerin patch. Consider restarting Digoxin, but will have Dr. Moss reevaluate her in the morning. Results of recent echocardiogram will be available at that time as she sees him again in the clinic. Check TSH. Put on fluid restrictions. Special attention to avoid falls. Placed on SCDs for DVT prophylaxis. Will hold Lovenox until after a thoracentesis if it is indicated. Close followup with Dr. Jensen upon completion. Will reevaluate and may eventually benefit by medicine such as Entresto under Dr. Moss and Dr. Jensen' supervision. Continue to observe with fluid restrictions and diuresis. #[id number] and [id number] [facility]
[2017-04-17] MEDS ORDERED: NITROGLYCERIN 0.4 MG 25 EA TAB SL PRN (18:02)
[2017-04-17] MEDS ORDERED: FUROSEMIDE INJ 20 MG/2 ML VIAL IV ONE (18:02)
[2017-04-17] MEDS ORDERED: SIMETHICONE 80 MG TAB PO PRN (18:10)
[2017-04-17] MEDS ORDERED: BISACODYL TAB 5 MG TAB PO PRN (18:20)
--- NOTE | 2017-04-17 18:24 | PCM.CORE ---
Physician DVT/VTE - 3-4 High Risk Pharmacological: Enoxaparin 40 mg SQ Daily
[2017-04-17] MEDS ORDERED: NITROGLYCERIN 0.1 MG/HR PATCH TD SCH (18:30)
[2017-04-17] MEDS: SODIUM CHLORIDE 0.9% (FLUSH) 10 ML SYG IV PRN ×2 (18:40→19:00)
[2017-04-17] MEDS: IV SET AND CAP CHANGE INJ INJ SCH (19:00)
[2017-04-17] MEDS: LISINOPRIL 5 MG TAB PO SCH (19:00)
[2017-04-17] MEDS ORDERED: PROMETHAZINE HCL INJ 12.5 MG in SODIUM CHLORIDE 0.9% 50ML 50 ML IVPB ONE (19:36)
[2017-04-17] MEDS ORDERED: PROMETHAZINE HCL INJ 25 MG/ML VIAL ONE (19:58)
[2017-04-17] MEDS ORDERED: SODIUM CHLORIDE 0.9% 50ML 50 ML ONE (19:58)
--- NOTE | 2017-04-17 20:03 | RAD ---
EXAM DESCRIPTION: Chest,2 Views CLINICAL HISTORY: 72 years Female CHF COMPARISON: 03/15/2017 FINDINGS: Cardiac enlargement. Prominence of the central pulmonary vasculature and interstitial markings which may reflect developing edema. Infectious process is not excluded. Bilateral effusions. Median sternotomy wires are present. IMPRESSION: Central pulmonary vascular congestion with infiltrates and pleural fluid in the lung bases which are worse than on the prior study. Findings may reflect developing edema. Infectious process not excluded Electronically signed by: Dee Christie 04/17/2017 8:01 PM [employer]
[2017-04-17] MEDS ORDERED: ARIPiprazole 5 MG TAB ONE (20:31)
[2017-04-17] MEDS ORDERED: ARIPIPRAZOLE 10 MG PO SCH (21:00)
[2017-04-17] MEDS: CARVEDILOL 3.125 MG TAB PO SCH (21:10)
[2017-04-17] MEDS: ACETAMINOPHEN 500 MG TAB PO PRN (22:10)
[2017-04-17] MEDS: HYDROcodone 5MG/APAP 325MG 1 EA TAB PO PRN (23:35)
[2017-04-17] MEDS: diphenhydrAMINE HCL 25 MG CAP PO PRN (23:35)
[2017-04-18] MEDS: LEVALBUTEROL NEBS 1.25 MG/3 ML VIAL INH SCH ×4 (00:47→16:13)
[2017-04-18] MEDS ORDERED: SITagliptin 50 MG TAB PO ONE (08:26)
[2017-04-18] MEDS ORDERED: DULoxetine HCL 30 MG CAP PO ONE (08:26)
[2017-04-18] MEDS ORDERED: OMEPRAZOLE CAP 20 MG CAP ONE (08:27)
[2017-04-18] MEDS: FUROSEMIDE INJ 40 MG/4 ML VIAL IV SCH ×2 (08:34→17:48)
[2017-04-18] MEDS: POLYETHYLENE GLYCOL 3350 17 GM PCKT PO SCH (08:34)
[2017-04-18] MEDS: LEVOTHYROXINE SODIUM 0.075 MG TAB PO SCH (08:35)
[2017-04-18] MEDS: LISINOPRIL 5 MG TAB PO SCH (08:35)
[2017-04-18] MEDS: CLOPIDOGREL 75 MG TAB PO SCH (08:35)
[2017-04-18] MEDS: CARVEDILOL 3.125 MG TAB PO SCH ×2 (08:35→20:53)
[2017-04-18] MEDS: SPIRONOLACTONE 25 MG TAB PO SCH (08:36)
[2017-04-18] MEDS: ASPIRIN (CHEWABLE) 81 MG TAB PO SCH (08:36)
[2017-04-18] MEDS: SITagliptin 50 MG TAB PO SCH (08:54)
[2017-04-18] MEDS: DULoxetine HCL 30 MG CAP PO SCH (08:54)
[2017-04-18] MEDS ORDERED: OMEPRAZOLE CAP 20 MG CAP PO SCH (09:00)
[2017-04-18] MEDS ORDERED: metFORMIN HCL 500 MG TAB PO SCH (09:00)
[2017-04-18] MEDS: REMOVE OLD PATCH TOP SCH (09:01)
--- NOTE | 2017-04-18 10:42 | CONS ---
DATE OF CONSULTATION: 04/18/17 HISTORY OF PRESENT ILLNESS: The patient is a 72-year-old female who was admitted from Dr. Jensen' office with shortness of breath, cough and she states some feeling of fever. The patient was eating poorly, but had gained some weight. She has recently been hospitalized multiple times for heart failure and pneumonia. I have been asked to evaluate whether or not her pleural effusions should be tapped for either diagnostic or therapeutic reasons. PAST MEDICAL HISTORY: 1. Congestive heart failure. 2. Hyponatremia. 3. Renal insufficiency. 4. Diabetes. 5. Hypertension. 6. Coronary artery disease status post grafting. MEDICATIONS: As listed. FAMILY HISTORY: Positive for coronary artery disease, diabetes, strokes. SOCIAL HISTORY: She is retired from working. She has never smoked or had use of alcohol. REVIEW OF SYSTEMS: Positive for weight gain and subjective fevers, shortness of breath and cough which is generally nonproductive. She has a poor appetite and mild nausea, but no vomiting. She has had no change in her bowel habits. PHYSICAL EXAMINATION: GENERAL: The patient is awake, alert, cooperative, in no acute distress. VITAL SIGNS: The patient is currently afebrile and normotensive. HEENT: Sclerae nonicteric. Mucous membranes moist. NECK: Without adenopathy. BACK: Without CVA tenderness. CHEST: Decreased breath sounds in the right base greater than the left. There is no significant wheezing. ABDOMEN: Soft and benign. PELVIC/RECTAL: Deferred. LABORATORY: Hemoglobin this morning is 12.0, down from 12.4. White count 5.5, neutrophils 66%. Chemistries reveal creatinine down from 1.57 to 1.47, potassium 4.1, sodium 126. BNP yesterday was 1090. TSH is increased at 8.76. Chest x-ray reveals moderate, but increased pleural effusions and the question of an infiltrate on the right side. ASSESSMENT: 1. Congestive heart failure with secondary pleural effusions which have worsened from the outpatient x-ray. PLAN: She has diuresed well and would follow her weight, repeat a chest x-ray tomorrow and make further recommendations about thoracentesis depending on the ongoing status of her chest x-ray. #[id number] [facility]
--- NOTE | 2017-04-18 19:36 | PN ---
DATE: 04/18/17 SUBJECTIVE: The patient is sitting up in the bed and appears to be feeling much improved, and she in fact verifies that she is feeling less dyspneic today compared to last evening. She continues on p.o. fluid restrictions and gentle diuresis. Her condition is discussed at length with Dr. Moss who is assisting Dr. Jensen in her ongoing care. We will continue with gentle diuresis with special attention to avoid harming her kidney functions. OBJECTIVE: Afebrile, blood pressure 120/66, pulse oximetry on 0.5 liter of 100% . Weight is unchanged which needs to be rechecked. LUNGS: Still with a few basilar rales clearing with deep inspirations. Slightly improved breath sounds today compared to yesterday. HEART: Tones regular. LABORATORY: Hemoglobin 12, white count 5,500. Chemistries showed sodium up from 125 to 126. BUN is stable at 26 and creatinine has improved to 1.47. Osmolality is up to 259 which is still very low. C reactive protein is 0.8, hopefully pointing away from a significant infectious component in the abnormal findings of her lungs. TSH is markedly elevated at 8.76 and Synthroid is started because of apparent clinical hypothyroidism. Urinalysis yesterday is generally clear. Repeat chest x-ray is ordered for tomorrow which will help Dr. Higgins to determine whether the patient will benefit from a thoracentesis or continued diuresis and conservative treatment. ASSESSMENT: 1. Chronic congestive heart failure of an undetermined type with elevated beta natriuretic peptide with an acute exacerbation. 2. Bilateral pleural effusions worsening with repeat x-rays and the patient being evaluated with Dr. Higgins to see if she would benefit by a therapeutic thoracentesis. 3. Hyponatremia slightly improved probably related to the dilutional effects of excessive free water with a very low serum osmolality slowly increasing. This may be related directly to an inappropriate or excessive secretion of the antidiuretic hormone possibly related to a pulmonary lesion within the pleural fluid. 4. Hypertension. 5. Diabetes mellitus type 2. 6. Chronic renal insufficiency. 7. Coronary artery disease with coronary artery bypass grafting to 4 vessels. 8. Acute dysrhythmia with ventricular bigeminy and frequent PVCs of a unifocal nature. PLAN: Will continue with diuresis and fluid restrictions with reevaluation in the morning. Dr. Higgins will then evaluate the repeat chest x-ray to see if he feels that she would benefit by thoracentesis procedures. Dr. Moss feels that we need to continue with a special balancing diuresis to avoid over diuresing to the point of renal injury, but continue with fluid restrictions. May eventually go home on Lasix 80 mg in the morning and 40 mg at night. To this was added Spironolactone 25 mg a day. Whether she would need Bumex or other additional diuresis is yet to be determined and the patient will have close followup with Dr. Jensen and Dr. Moss in the clinic. #[id number] [facility]
[2017-04-18] MEDS ORDERED: ARIPiprazole 5 MG TAB ONE (19:55)
[2017-04-18] MEDS ORDERED: PANTOPRAZOLE SODIUM TAB 40 MG PO ONE (19:56)
[2017-04-18] MEDS ORDERED: NITROGLYCERIN 0.1 MG/HR PATCH TD ONE (19:56)
[2017-04-18] MEDS: diphenhydrAMINE HCL 25 MG CAP PO PRN (20:23)
[2017-04-18] MEDS: HYDROcodone 5MG/APAP 325MG 1 EA TAB PO PRN (20:23)
[2017-04-18] MEDS: ARIPiprazole 5 MG TAB PO SCH (20:53)
[2017-04-18] MEDS: NITROGLYCERIN 0.1 MG/HR PATCH TD SCH (20:53)
[2017-04-18] MEDS: SODIUM CHLORIDE 0.9% (FLUSH) 10 ML SYG IV PRN (20:53)
[2017-04-19] MEDS: LEVALBUTEROL NEBS 1.25 MG/3 ML VIAL INH SCH ×3 (00:34→16:43)
[2017-04-19] MEDS ORDERED: PROMETHAZINE HCL INJ 25 MG/ML VIAL ONE (01:41)
[2017-04-19] MEDS ORDERED: SODIUM CHLORIDE 0.9% 50ML 50 ML ONE (01:41)
[2017-04-19] MEDS: PROMETHAZINE HCL INJ 12.5 MG in SODIUM CHLORIDE 0.9% 50ML 50 ML IVPB PRN (01:43)
[2017-04-19] MEDS: TEMAZEPAM 15 MG CAP PO PRN (01:52)
[2017-04-19] MEDS: HYDROcodone 5MG/APAP 325MG 1 EA TAB PO PRN ×3 (03:02→17:33)
[2017-04-19] MEDS: PANTOPRAZOLE SODIUM TAB 40 MG PO SCH (06:31)
[2017-04-19] MEDS: LEVOTHYROXINE SODIUM 0.075 MG TAB PO SCH (06:31)
--- NOTE | 2017-04-19 07:39 | RAD ---
EXAM DESCRIPTION: Abdomen Flat Upright CLINICAL HISTORY: 72 years Female, fu pleural effusion COMPARISON: None. FINDINGS: Two views of the abdomen demonstrate bibasilar lung disease with hazy parenchymal density and Francisco modest amount of pleural thickening and/or pleural fluid at the lateral right lung base. No free abdominal air on the upright view is noted. Previous sternotomy is evident. The bowel gas pattern is normal without obstruction or ileus. Degenerative changes in the spine are apparent. No soft tissue masses are seen. IMPRESSION: Bibasilar lung disease with parenchymal changes and a modest pleural thickening and fluid at the lateral right lung base and minimally at the inferior left lung base. Electronically signed by: Jadon Noe MD 04/19/2017 7:38 AM SURGICAL RESIDENT
[2017-04-19] MEDS: SITagliptin 50 MG TAB PO SCH (09:27)
[2017-04-19] MEDS: CLOPIDOGREL 75 MG TAB PO SCH (09:28)
[2017-04-19] MEDS: LISINOPRIL 5 MG TAB PO SCH (09:28)
[2017-04-19] MEDS: ASPIRIN (CHEWABLE) 81 MG TAB PO SCH (09:28)
[2017-04-19] MEDS: DULoxetine HCL 30 MG CAP PO SCH (09:28)
[2017-04-19] MEDS: CARVEDILOL 3.125 MG TAB PO SCH ×2 (09:28→22:11)
[2017-04-19] MEDS: SPIRONOLACTONE 25 MG TAB PO SCH (09:28)
[2017-04-19] MEDS: POLYETHYLENE GLYCOL 3350 17 GM PCKT PO SCH ×2 (09:31→10:02)
[2017-04-19] MEDS: REMOVE OLD PATCH TOP SCH (09:32)
[2017-04-19] MEDS: FUROSEMIDE INJ 40 MG/4 ML VIAL IV SCH ×3 (09:32→22:11)
--- NOTE | 2017-04-19 09:57 | RAD ---
EXAM DESCRIPTION: Chest,2 Views CLINICAL HISTORY: fu pleural effusion COMPARISON: April 17, 2017 FINDINGS: Two-view chest x-ray shows enlargement of the cardiac silhouette without pulmonary vascular congestion. Sternotomy wires are stable. Increased density in the right lower chest and blunting of the right costophrenic angle is again seen similar to previous exam. There is indistinctness of the left hemidiaphragm and blunting of the left costophrenic angle. Increased interstitial markings in the lower lobes similar to previous. Mild disc degenerative changes of the spine. IMPRESSION: Stable moderate right and mild left pleural effusions are seen with probable compressive atelectasis versus pulmonary infiltrates in the lung bases. Electronically signed by: Clark Davis MD 04/19/2017 9:56 AM PARTS MANAGER
[2017-04-19] MEDS ORDERED: metOLazone 2.5 MG TAB PO ONE (13:57)
[2017-04-19] MEDS ORDERED: AZITHROMYCIN IV 500 MG in SODIUM CHLORIDE 0.9% 250ML 250 ML IVPB SCH ×2 (18:30→20:00)
[2017-04-19] MEDS ORDERED: SODIUM CHL 0.9% 50ML MIN-BAG+ 50 ML IVPB ONE (18:33)
[2017-04-19] MEDS ORDERED: cefTRIAXone SODIUM 1 GM VIAL ONE (18:33)
[2017-04-19] MEDS: cefTRIAXone SODIUM 1 GM in SODIUM CHL 0.9% 50ML MIN-BAG+ 50 ML IVPB SCH (18:35)
[2017-04-19] MEDS ORDERED: AZITHROMYCIN IV 500 MG VIAL IVPB ONE (19:47)
[2017-04-19] MEDS ORDERED: SODIUM CHLORIDE 0.9% 250ML 250 ML ONE (19:48)
[2017-04-19] MEDS: ARIPiprazole 5 MG TAB PO SCH (20:54)
[2017-04-19] MEDS: ACETAMINOPHEN 500 MG TAB PO PRN (22:11)
[2017-04-19] MEDS: diphenhydrAMINE HCL 25 MG CAP PO PRN (22:11)
[2017-04-20] MEDS: LEVALBUTEROL NEBS 1.25 MG/3 ML VIAL INH SCH ×3 (00:15→16:22)
--- NOTE | 2017-04-20 01:59 | CT ---
EXAM DESCRIPTION: Abdomen/Pelvis w/o [id number]/14/2017 1:55 AM MATERIALS SCHEDULER CLINICAL HISTORY: 72 years, Female, abdominal pain COMPARISON: None. TECHNIQUE: Volumetric CT acquisition was performed through the abdomen and pelvis. Images in the axial and coronal planes were presented for interpretation This exam was performed according to our departmental dose-optimization program, which includes automated exposure control, adjustment of the mA and/or kV according to patient size and/or use of iterative reconstruction technique. FINDINGS: There is a moderate right and small left pleural effusion with bibasilar atelectasis. The cardiomediastinal structures are within normal limits. Within the upper abdomen, the liver and spleen are normal in size and morphology. The gallbladder is normal in morphology. The intra/extrahepatic biliary tree is normal in appearance. The pancreas and adrenal glands are normal. The right kidney is normal in size and the right ureter is normal in course and caliber. There are no right renal calculi, distal obstructing stones, or evidence of hydronephrosis/hydroureter. The left kidney is normal in size and the left ureter is normal in course and caliber. There are no left renal calculi, distal obstructing stones, or evidence of hydronephrosis/hydroureter. There is moderate generalized volume overload with diffuse mesenteric and body wall edema. There is a small amount of abdominal/pelvic ascites diffusely. The stomach and small intestines are within normal limits without evidence of bowel dilation or wall thickening. The appendix is not well-visualized. The colon is stool filled and unremarkable. The bladder is largely collapsed around a Agustin catheter. The rectum is grossly normal in appearance. The uterus and ovaries are age-appropriate with calcified uterine fibroids. There are no pathologically enlarged inguinal, retroperitoneal, portacaval, or mesenteric lymph nodes. The soft tissue structures of the abdominal wall are normal. The visualized osseous structures are within normal limits for the patient's age. The abdominal aorta and its primary branches are normal in course and caliber. Limited evaluation of the venous structures demonstrates no gross abnormalities. IMPRESSION: 1. No acute intra-abdominal process. 2. Generalized volume overload with mesenteric and body wall edema with abdominal/pelvic ascites and bilateral pleural effusions. 3. Fibroid uterus. Electronically signed by: Phoebe Corea MD 04/20/2017 1:58 AM MATERIALS SCHEDULER
--- NOTE | 2017-04-20 02:05 | CT ---
EXAM DESCRIPTION: Chest w/o Contrast 04/20/2017 2:02 AM SALES MERCHANDISER CLINICAL HISTORY: 72 years, Female, increasing SOB COMPARISON: None. TECHNIQUE: Volumetric CT acquisition was performed through the chest. Images in the axial, coronal, and sagittal plane were presented for interpretation. This exam was performed according to our departmental dose-optimization program, which includes automated exposure control, adjustment of the mA and/or kV according to patient size and/or use of iterative reconstruction technique. FINDINGS: There is a moderate right and small left pleural effusion with bilateral lower lobe atelectasis. There is motion artifact throughout the exam slightly limiting evaluation. The heart is enlarged with moderate coronary artery calcifications.. The thoracic aorta and its primary branches are normal in course and caliber. The main pulmonary artery and visualized proximal tracheobronchial tree are within normal limits. The patient is status post sternotomy and CABG. There are no pathologically enlarged mediastinal, hilar, supraclavicular, or axillary lymph nodes. The upper abdominal structures are better evaluated on the corresponding abdomen/pelvis CT. The soft tissue structures of the chest wall are normal. The visualized osseous structures are within normal limits for the patient's age . IMPRESSION: 1. Cardiomegaly with moderate right and small left pleural effusion. 2. Bilateral lower lobe atelectasis. 3. Coronary artery calcifications with sternotomy and CABG.. Electronically signed by: Phoebe Corea MD 04/20/2017 2:04 AM SALES MERCHANDISER
[2017-04-20] MEDS: NITROGLYCERIN 0.1 MG/HR PATCH TD SCH ×2 (02:30→22:01)
[2017-04-20] MEDS: HYDROcodone 5MG/APAP 325MG 1 EA TAB PO PRN ×3 (03:33→18:50)
[2017-04-20] MEDS: FUROSEMIDE INJ 40 MG/4 ML VIAL IV SCH (05:38)
[2017-04-20] MEDS: LEVOTHYROXINE SODIUM 0.075 MG TAB PO SCH (06:41)
[2017-04-20] MEDS: PANTOPRAZOLE SODIUM TAB 40 MG PO SCH (06:41)
--- NOTE | 2017-04-20 08:49 | PN ---
SUPERVISING PHYSICIAN: Jadon Salas MD DATE: 04/19/17 SUBJECTIVE: The patient is sitting in a chair. Her caregiver notes she has been fairly lethargic today, but she did not sleep much last night. She has also had some increasing dyspnea today. She denies any chest pain, nausea, vomiting or diarrhea. OBJECTIVE: VITAL SIGNS: Afebrile with T-max 98.7. Pulse 62. Blood pressure 120/68. Respirations 19. Saturation 92% on room air. I&Os show negative balance of 872 with 528 in, 1400 out. Weight 63.0 kg. GENERAL: The patient appears to be comfortable in no distress. She is somewhat lethargic, but is easily aroused. NECK: There was note of some jugular venous distention. CHEST: Lungs continue with some notable bibasilar rales, more prominent on the right than left with no obvious wheezing. HEART: Regular rate and rhythm. ABDOMEN: Obese, but soft and nontender. Positive bowel sounds. EXTREMITIES: She does have 1+ edema to her bilateral extremities extending up to her thighs and into her lower abdomen area. NEUROLOGIC: She is somewhat lethargic, but more sleepy and easily arousable, but no obvious deficits are noted. Once awake, she is alert to herself, her caregiver and location. LABORATORY: CBC shows white count 5,500 with hemoglobin 12, hematocrit 35.1, platelet count 157,000, differential without a left shift. Chemistries show sodium 125 which is essentially unchanged from admission with BUN 25 unchanged from admission and creatinine slightly elevated from admission at 1.61. Serum osmolality is essentially the same as it was when she was admitted. MICROBIOLOGY: There are no specimens. RADIOLOGY: Abdominal x-ray, two view, per radiologic interpretation shows bibasilar lung disease with parenchymal changes with modest pleural thickening and fluid at the lateral right lung base and minimal at the inferior left lung base. She also had a chest x-ray, two view, showing stable moderate right and mid left pleural effusions, probable compressive atelectasis versus pulmonary infiltrates in the lung bases. ASSESSMENT: 1. Acute exacerbation of chronic congestive heart failure with a reduced left ventricular ejection fraction as per cardiology with a noted systolic dysfunction and mild to moderate mitral regurgitation with an elevated beta natriuretic peptide on admission showing slow response with treatment requiring more aggressive initiation of diuretics. 2. Bilateral pleural effusions, stable on x-rays with the patient being followed by Dr. Higgins with possible need for a therapeutic thoracentesis. Unable to fully rule out early development of pneumonia although the patient has a normal white count and is afebrile. Continue to monitor. 3. Hyponatremia, more likely chronic, but showing a persistent level with a low serum osmolality, possibly related to inappropriate or excessive secretion of the antidiuretic hormone related to a pulmonary lesion, yet to be identified, within the pleural fluid noted on x-ray versus acute exacerbation from #1. 4. Hypertension. 5. Diabetes mellitus, type 2. 6. Chronic renal insufficiency. 7. Coronary artery disease with coronary artery bypass grafting to 4 vessels. 8. Acute dysrhythmia with ventricular bigeminy and frequent premature ventricular contractions of a unifocal nature. PLAN: We will continue with diuresis, but we will increase to 40 mg of Lasix q.8h. with 5 mg Zaroxolyn dose daily 30 minutes prior to one of the Lasix doses. I ordered a Agustin catheter to closely monitor her output given the degree of edema and need for aggressive diuresis. We will plan to reevaluate in the morning with a chest x-ray and followup with Dr. Higgins in regard to the need for possible thoracentesis. Dr. Moss did see the patient yesterday and suggested continued diuresis with Lasix and Bumex as needed and continue further workup for questionable underlying other pathology resulting in the patient's symptoms. She also remains on Spironolactone 25 mg daily. Again, we will continue to monitor output and should she need, we will add additional diuresis with Bumex as appropriate. We will anticipate at least another 48 hours of hospitalization pending need for thoracentesis. In regard to the questionable underlying pneumonia or infectious process that is not able to be completely ruled out even though the patient remains afebrile with a leukocytosis, I will start her on Rocephin and azithromycin. Until discharge, we will continue to monitor the patient closely and treat appropriately. Once discharged, she will need close clinical followup with Dr. Jensen and Dr. Moss. [facility][id number] [facility]
[2017-04-20] MEDS: POLYETHYLENE GLYCOL 3350 17 GM PCKT PO SCH (09:16)
[2017-04-20] MEDS: CARVEDILOL 3.125 MG TAB PO SCH ×2 (09:17→21:15)
[2017-04-20] MEDS: DULoxetine HCL 30 MG CAP PO SCH (09:17)
[2017-04-20] MEDS: ASPIRIN (CHEWABLE) 81 MG TAB PO SCH (09:17)
[2017-04-20] MEDS: LISINOPRIL 5 MG TAB PO SCH (09:17)
[2017-04-20] MEDS: SPIRONOLACTONE 25 MG TAB PO SCH ×2 (09:17→17:35)
[2017-04-20] MEDS: SITagliptin 50 MG TAB PO SCH (09:17)
[2017-04-20] MEDS: CLOPIDOGREL 75 MG TAB PO SCH (09:17)
[2017-04-20] MEDS: REMOVE OLD PATCH TOP SCH (09:24)
[2017-04-20] MEDS ORDERED: SODIUM CHLORIDE 0.9% 50ML 50 ML ONE ×2 (10:06→20:04)
[2017-04-20] MEDS ORDERED: PROMETHAZINE HCL INJ 25 MG/ML VIAL ONE ×2 (10:06→20:04)
[2017-04-20] MEDS: PROMETHAZINE HCL INJ 12.5 MG in SODIUM CHLORIDE 0.9% 50ML 50 ML IVPB PRN ×2 (10:08→20:27)
[2017-04-20] MEDS: ALBUMIN 25 GM in PREMIX BOTTLE 1 BOTTLE IVPB SCH ×2 (12:17→18:15)
[2017-04-20] MEDS: SODIUM CHLORIDE 0.9% (FLUSH) 10 ML SYG IV PRN ×2 (13:19→20:31)
[2017-04-20] MEDS ORDERED: SODIUM CHL 0.9% 50ML MIN-BAG+ 50 ML IVPB ONE (15:22)
[2017-04-20] MEDS ORDERED: SPIRONOLACTONE 25 MG TAB ONE (15:22)
[2017-04-20] MEDS ORDERED: cefTRIAXone SODIUM 1 GM VIAL ONE (15:23)
[2017-04-20] MEDS: cefTRIAXone SODIUM 1 GM in SODIUM CHL 0.9% 50ML MIN-BAG+ 50 ML IVPB SCH (17:32)
[2017-04-20] MEDS: IV SET AND CAP CHANGE INJ INJ SCH (18:21)
--- NOTE | 2017-04-20 19:49 | PN ---
DATE: 04/20/17 SUPERVISING PHYSICIAN: Jigar Jensen M.D. SUBJECTIVE: Last night I was notified that the patient appeared to be having some mild respiratory distress and was appearing to be cyanotic. After examining the patient, the patient was found to be in some mild distress secondary to increased abdominal girth and edema, but was showing no overt failure. Laboratory studies were completed, including ABGs that showed no acute respiratory failure. A CT of the abdomen and chest were also completed. Those findings are discussed below. The findings of both the labs, the radiographic studies and the patient's condition were discussed with the patient 's caregiver/niece, and the discussion to follow was more aggressive diuresis starting today. I did talk to Dr. Solares this morning and he agreed that we could do a Lasix drip with some albumin in attempts to help remove some of the fluid and decrease the edema, therefore decreasing her respiratory effort. OBJECTIVE: VITAL SIGNS: She remains afebrile with temperature of 96.7, pulse 81 , blood pressure 114/ 69, respirations 18, satting 100% on nasal cannula at 2 liters. I's and O's show a negative balance of 229 with 1123 in, 1352 out. She has not yet had a bowel movement. Weight is down to 60.7 kg compared to admission of 63.2 kg. CHEST: Lung sounds remain diminished towards the bases bilaterally more so on the right than the left. No wheezing, rhonchi or rales are noted. HEART: Regular rate and rhythm. ABDOMEN: Remains distended and edematous with positive bowel sounds. EXTREMITIES: Continues with 1+ edema from the distal extremities up to her mid abdomen. NEUROLOGIC: She remains lethargic but easily arousable, but in no obvious distress nor are there any obvious neurological deficits noted on exam. LABORATORY: CBC last night showed 5,400 white count with hemoglobin 12.6, hematocrit 37.7, platelet count 138,000. Differential is within normal limits. Blood gas analysis showed a normal pH of 7.38 as well as PCO2 of 38, PO2 of 108 and bicarb of 21 with saturation of 100% and a base excess of less than 2.6 with the patient on 2 liters nasal cannula. Chemistries last night, initial sodium showed to be 123 with normal potassium. Creatinine had gone up to 1.77 with BUN of 27. Liver functions showed to be within normal limits except for just a slightly elevated alkaline phosphatase. This morning, her sodium had improved to 128 with potassium 3.6, BUN 13, creatinine had gone down to 0.73. Serum osmolality was 257. Total bilirubin was slightly elevated at 1.3 but all other liver functions were within normal limits. Albumin was low at 2.9 with calcium noted to be 8.7. Urinalysis yesterday afternoon on catheterization of the bladder showing a small amount of blood with 3 to 5 RBCs, but otherwise within normal limits. MICROBIOLOGY: There are no microbiology specimens pending. RADIOLOGY: She had a pelvis/abdominal CT without contrast last night and per radiology findings there was no acute intraabdominal process. There was note of generalized volume overload with a mesenteric and body wall edema and abdominal/ pelvic ascites and bilateral pleural effusions as well as a fibroid uterus. She also had a chest CT without contrast and again per radiology interpretation there was again note of cardiomegaly with moderate right small pleural effusions and bilateral lower lobe atelectasis. ASSESSMENT: 1. Acute exacerbation of chronic congestive heart failure with reduced left ventricular ejection fraction per cardiology and noted systolic dysfunction with moderate mitral regurgitation with an elevated BNP on admission showing slow response with treatment that includes aggressive diuresis again requiring initiation of more aggressive diuretic measures to include a Lasix drip and albumin administration. 2. Bilateral pleural effusions showing to be stable on both x-rays and a CT of the chest followed by Dr. Higgins with no evidence of other consolidative processes noted on radiographic studies. Continue to monitor closely. 3. Hyponatremia more likely chronic showing to be persistent with low serum osmolality possibly related to some inappropriate or excessive secretion of antidiuretic hormone related to the ongoing pleural effusion and fluid overload secondary to acute exacerbation of her congestive heart failure. 4. Hypertension. 5. Diabetes mellitus type 2. 6. Chronic renal insufficiency, improved after treatment. 7. Coronary artery disease with coronary artery bypass grafting to 4 vessels. 8. History of past acute dysrhythmias with ventricular bigeminy and frequent PVCs of unifocal nature with no other evidence of any abnormal rhythm since admission. PLAN: I did discuss the patient's condition with Dr. Solares this morning in regards to the ascites and he recommended that we could try some more aggressive diuresis in attempt to hopefully pull some of the fluid off. Therefore will start her on Lasix drip at 0.5 mg per kg per hour for 24 hours. Will also give her 25 grams of albumin every 6 hours times 4 doses and increase her Spironolactone to 25 mg b.i.d. for 24 hours. Will plan to repeat a chest x- ray in the morning and follow her I's and O's closely as she does have a Agustin catheter in place. I will go ahead and plan to follow her electrolytes at least every 12 hours to ensure that her potassium remains within safe limits given the aggressive diuresis with the Lasix drip and the increased Spironolactone. Will continue to follow the patient along with Dr. Higgins in regards for possible need for a thoracentesis, but again reevaluate in the morning after the patient has had additional time for her diuresis to progress hopefully in efforts to forego any invasive procedures. A discussion at some point needs to be initiated again with the caregiver in regards to the patient' s end stage congestive heart failure resulting in her fluid overload which is becoming very resistant to treatment, again with indications that the patient would benefit from hospice care and prevent further admissions and assist with palliative care given the patient's poor prognosis. Will continue to follow the patient closely and again remain on at least Rocephin and Azithromycin for another 24 hours until we repeat chest x-ray in the morning. Until we discharge , will continue to monitor and treat appropriately. #[id number] [facility] SYSTEM[facility]
[2017-04-20] MEDS: AZITHROMYCIN 250 MG TAB PO SCH (21:15)
[2017-04-20] MEDS: ARIPiprazole 5 MG TAB PO SCH (21:15)
[2017-04-20] MEDS ORDERED: SODIUM CHLORIDE 0.9% 100ML 100 ML IVPB ONE (22:06)
[2017-04-20] MEDS ORDERED: FUROSEMIDE INJ 100 MG/10 ML VIAL ONE (22:06)
[2017-04-20] MEDS: FUROSEMIDE IV SCH (22:15)
[2017-04-20] MEDS: SODIUM CHLORIDE 0.9% IV SCH (22:15)
[2017-04-21] MEDS: LEVALBUTEROL NEBS 1.25 MG/3 ML VIAL INH SCH ×3 (00:12→17:30)
[2017-04-21] MEDS: TEMAZEPAM 15 MG CAP PO PRN (00:55)
[2017-04-21] MEDS: HYDROcodone 5MG/APAP 325MG 1 EA TAB PO PRN ×2 (00:55→17:50)
[2017-04-21] MEDS ORDERED: PROMETHAZINE HCL INJ 25 MG/ML VIAL ONE (04:35)
[2017-04-21] MEDS ORDERED: SODIUM CHLORIDE 0.9% 50ML 50 ML ONE (04:35)
[2017-04-21] MEDS: PROMETHAZINE HCL INJ 12.5 MG in SODIUM CHLORIDE 0.9% 50ML 50 ML IVPB PRN (04:40)
[2017-04-21] MEDS: SODIUM CHLORIDE 0.9% (FLUSH) 10 ML SYG IV PRN (05:11)
[2017-04-21] MEDS: ALBUMIN 25 GM in PREMIX BOTTLE 1 BOTTLE IVPB SCH ×2 (06:04→12:35)
[2017-04-21] MEDS: PANTOPRAZOLE SODIUM TAB 40 MG PO SCH (06:06)
[2017-04-21] MEDS: LEVOTHYROXINE SODIUM 0.075 MG TAB PO SCH (06:06)
[2017-04-21] MEDS ORDERED: SODIUM CHL 0.9% 50ML MIN-BAG+ 0 ML IVPB ONE (07:18)
[2017-04-21] MEDS ORDERED: cefTRIAXone SODIUM 1 GM VIAL ONE ×2 (07:19→15:44)
--- NOTE | 2017-04-21 09:16 | RAD ---
EXAM DESCRIPTION: Chest,1 View CLINICAL HISTORY: CHF exacerbation FINDINGS/ IMPRESSION: Comparison 04/19/2017 Median sternotomy wires. Cardiomegaly with vascular congestion. Interstitial and alveolar edema perihilar and lung bases worsened since prior study. Moderate bilateral pleural effusions right greater than left. Findings suggest sequela of congestive heart failure. Electronically signed by: Jadon Diehl MD 04/21/2017 9:15 AM [facility]
[2017-04-21] MEDS: SPIRONOLACTONE 25 MG TAB PO SCH ×2 (12:32→13:20)
[2017-04-21] MEDS: ASPIRIN (CHEWABLE) 81 MG TAB PO SCH (12:32)
[2017-04-21] MEDS: CARVEDILOL 3.125 MG TAB PO SCH ×2 (12:33→20:42)
[2017-04-21] MEDS: DULoxetine HCL 30 MG CAP PO SCH (12:34)
[2017-04-21] MEDS: SITagliptin 50 MG TAB PO SCH (12:34)
[2017-04-21] MEDS: REMOVE OLD PATCH TOP SCH (12:36)
--- NOTE | 2017-04-21 12:36 | US ---
EXAM DESCRIPTION: Chest CLINICAL HISTORY: Rocío level right side Thoracentesis by Dr Higgins COMPARISON: Chest radiograph dated April 21, 2017 at 0900 hours. Findings/impression: 5 sonographic images were obtained over the left thorax to rocío area for thoracentesis. There is moderate left-sided pleural effusion present. Electronically signed by: Frantz Michelle MD 04/21/2017 12:35 PM ACTIONSCRIPT DEVELOPER
[2017-04-21] MEDS: LISINOPRIL 5 MG TAB PO SCH (12:37)
[2017-04-21] MEDS: CLOPIDOGREL 75 MG TAB PO SCH (12:37)
[2017-04-21] MEDS: POLYETHYLENE GLYCOL 3350 17 GM PCKT PO SCH (12:46)
--- NOTE | 2017-04-21 12:53 | RAD ---
EXAM DESCRIPTION: Chest,1 View CLINICAL HISTORY: Status post right-sided thoracentesis. COMPARISON: Chest radiograph dated April 21, 2017. IMPRESSION: Single upright portable frontal view of the chest. Patient is rotated. Postsurgical changes with median sternotomy wires. Cardiac silhouette again shows stable cardiomegaly with mild interstitial edema. Interval right-sided thoracentesis with significant reduction in right-sided pleural effusion. Right costophrenic angle is sharp. There is minimal hazy linear opacity in the right lower lung zone which may represent atelectasis. No pneumothorax. There remains moderate left-sided pleural effusion with probable adjacent atelectasis of the left lung base. Underlying infiltrate cannot be entirely excluded. Electronically signed by: Frantz Michelle MD 04/21/2017 12:51 PM [facility] [place]
[2017-04-21] MEDS ORDERED: BISACODYL SUPPOSITORY 10 MG PR ONE (13:10)
--- NOTE | 2017-04-21 13:10 | OP ---
DATE OF PROCEDURE: 04/21/17 PREOPERATIVE DIAGNOSIS: 1. Bilateral pleural effusion, right greater than left, secondary to congestive heart failure. POSTOPERATIVE DIAGNOSIS: 1. Bilateral pleural effusion, right greater than left, secondary to congestive heart failure. PROCEDURE: 1. Right thoracentesis. SURGEON: Kain Higgins MD. CORE MEASURES ABSTRACTOR: None. ANESTHESIA: Local infiltration of 1% lidocaine. INDICATION: The patient is a 72-year-old female with congestive heart failure who has so far failed treatment with diuresis. Her weight has essentially stayed unchanged. After significant discussion with the family and with Dr. Jensen, an ultrasound was obtained which did show a significant pocket and after the risks, benefits and alternatives were discussed, a right thoracentesis is performed after the position was marked with ultrasound. PROCEDURE: After the patient's ultrasound was done and the chest was marked, the right back was prepped with chlorhexidine prep and then draped. Local infiltration of anesthesia was obtained with 1% lidocaine. A 22-gauge needle was introduced over the rib into the chest and clear fluid was obtained. A stab wound was made with an 11 blade and the thoracentesis needle and catheter were introduced until fluid was obtained. The catheter was advanced and the needle was withdrawn. It was then connected to a three-way stopcock and approximately 180 mL of clear, dark, straw-colored fluid was obtained. Specimens were sent for evaluation and culture. It was then connected to a suction canister and a total of just under 900 mL of fluid was obtained. The catheter was removed. The patient tolerated the procedure well and seems to be breathing better. A stat portable chest x-ray was ordered along with a chest x- ray tomorrow. #[id number] [facility]
[2017-04-21] MEDS ORDERED: FUROSEMIDE INJ 100 MG/10 ML VIAL IV ONE (14:25)
[2017-04-21] MEDS: SODIUM CHLORIDE 0.9% IV SCH (14:30)
[2017-04-21] MEDS: FUROSEMIDE IV SCH (14:30)
[2017-04-21] MEDS ORDERED: SODIUM CHL 0.9% 50ML MIN-BAG+ 50 ML IVPB ONE (15:44)
[2017-04-21] MEDS ORDERED: SPIRONOLACTONE 25 MG TAB ONE (15:44)
[2017-04-21] MEDS: cefTRIAXone SODIUM 1 GM in SODIUM CHL 0.9% 50ML MIN-BAG+ 50 ML IVPB SCH (17:46)
--- NOTE | 2017-04-21 18:50 | PN ---
DATE: 04/21/17 SUPERVISING PHYSICIAN: Jigar Jensen M.D. SUBJECTIVE: The patient continues to have some dyspnea with any exertional effort and some mild distress at some times. She was initially to be started on a Lasix drip earlier in the day, however for some reason the drip was never started and then was initiated around 11:00 last night. She has had minimal response to the Lasix and continues to show some decline. X-ray this morning showed worsening congestion and a large pleural effusion again on the right. After discussion with both Dr. Jensen and Dr. Higgins, and lengthy discussion with the family members, the decision was made that a therapeutic thoracentesis was the best course of action at this point to try to get some symptomatic relief. The patient tolerated the procedure well and Dr. Higgins was able to remove approximately 900 mL of pleural fluid which was sent for further studies. The patient after the procedure showed to be in less distress, comfortable and breathing more easily. She continues to have a significant amount of abdominal edema and ascites. She remains afebrile and has not had any nausea or vomiting. She has been tolerating the Lasix drip without any complications with anticipation of completion of drip tonight around 2300. OBJECTIVE: VITAL SIGNS: This morning, temperature 96.8, pulse 62, blood pressure 99/64, respirations 19, satting 97% on nasal cannula at 2 liters. After she had her thoracentesis, she was shown to be hemodynamically stable and satting in the mid 90s with no obvious respiratory distress. Weight has decreased since admission showing to be at 60.78 compared to admission weight of 63.5 kg. I's and O's show that she has had minimal response to the Lasix drip with intake being 890 and output being 925 with a deficit of 35 mL. GENERAL: The patient is resting in the bed after thoracentesis and appears to be in no distress, comfortable, much more relaxed. Breath sounds are significantly improved on the right with some crackles towards the bases, but better aeration compared to previous days. ABDOMEN: Remains distended and edematous with positive bowel sounds. EXTREMITIES: Continue with 1+ edema extending from the lower extremity up to the mid abdomen. NEUROLOGIC: She is somewhat more alert today after the thoracentesis and is actually able to answer some questions, and shows no obvious neurologic deficits. LABORATORY STUDIES: CBC this morning showed a white count of 4,300, hemoglobin stable at 11.1 as well as hematocrit 32.7, platelet count 111,000. Differential shows to be without a left shift. Chemistries continue to show a persistent hyponatremia at 122 with potassium 4.6, BUN 33, creatinine 1.99 with glucose 161. Serum osmolality has improved somewhat up to 256. Liver functions remain within normal limits except for continued elevated alkaline phosphatase at 145. Albumin shows to be 3.3 today after infusion with albumin replacement. Pleural cell count and LDH is pending as well as protein pH, culture and cell counts. MICROBIOLOGY: Again, pleural fluid culture is pending. RADIOLOGY: This morning, a chest x-ray per radiology interpretation single view chest showed moderate bilateral pleural effusions, right greater than left , findings suggestive of sequelae of congestive heart failure with the lung bases worsened from previous studies. Prior to the thoracentesis he had a chest ultrasound to marked levels and per radiology interpretation it was noted that there was moderate right sided pleural effusion present, level was marked prior to thoracentesis. Post thoracentesis chest x-ray single view chest showed interval right sided thoracentesis, significant reduction in the right sided pleural effusion. Right costophrenic angle is sharp. There is minimal hazy linear opacity in the right lower lung zone which may represent atelectasis. No pneumothorax was noted. There remained a moderate left sided pleural effusion with probable adjacent atelectasis of the left lung. Underlying infiltrate cannot be completely excluded. ASSESSMENT: 1. Acute exacerbation of chronic congestive heart failure with a significantly reduced left ventricular ejection fraction per Cardiology and note of systolic dysfunction with a moderate mitral regurgitation with an elevated BNP on admission showing slow response with diuretic treatments on a Lasix drip requiring a therapeutic thoracentesis for symptom control having resulted in over 900 mL of pleural fluid obtained during the procedure with the patient tolerating the procedure well with studies pending. 2. Bilateral pleural effusion having shown to be acutely worsened today compared to previous days requiring thoracentesis for symptomatic relief again with 900 mL of pleural fluid removed with the patient showing improvement and studies pending. 3. Persistent hyponatremia but felt to be secondary to the aggressive diuresis currently on the Lasix drip with the low serum osmolality noted giving the possibility of some inappropriate or excessive secretion of antidiuretic hormone related to ongoing pleural effusion and fluid overload secondary to acute exacerbation of her congestive heart failure. 4. Hypertension. 5. Diabetes mellitus type 2. 6. Chronic renal insufficiency initially showing some improvement but acutely worsening as she is on a Lasix drip. 7. Coronary artery disease with coronary artery bypass grafting times 4 vessels. 8. History of acute dysrhythmias with previously noted ventricular bigeminy and frequent PVCs of unifocal nature with no additional abnormal rhythms noted on admission. 9. Anasarca with noted ascites secondary to #1 showing slow response with aggressive diuresis with a Lasix drip, Spironolactone and albumin infusions. PLAN: Will continue to follow the patient today as she finishes with the lasix drip as she was showing some improvement. Will continue with antibiotics until we get some culture results back. Will repeat a chest x-ray in the morning. There has been a lengthy discussion with Dr. Jensen, Dr. Higgins and the family members as well as Dentist/Owner and myself in regards to changing the patient to hospice for palliative care, but at this point the family again wishes to be more aggressive in the care and allow her time to see if this is going to improve after the thoracentesis. They did decide to make her a limited DNR with no intubation and are considering hospice again, but want to wait at least 24 to 48 hours to see how well she responds to the previous thoracentesis. She will continue on Lasix drip until around 2300 tonight which will complete her 24 hour Lasix drip. Again, will repeat her labs in the morning. Will repeat an x-ray and anticipate at least another 24 to 48 hours of aggressive care and depending on the clinical situation and improvement of the patient, possibly discharging to hospice care. Until then, continue to monitor and treat appropriately. #[id number] [facility]
[2017-04-21] MEDS ORDERED: SPIRONOLACTONE 25 MG TAB PO ONE (19:00)
[2017-04-21] MEDS: ARIPiprazole 5 MG TAB PO SCH (20:41)
[2017-04-21] MEDS: AZITHROMYCIN 250 MG TAB PO SCH (20:41)
[2017-04-21] MEDS: NITROGLYCERIN 0.1 MG/HR PATCH TD SCH (20:41)
[2017-04-22] MEDS: LEVALBUTEROL NEBS 1.25 MG/3 ML VIAL INH SCH ×2 (00:02→10:30)
[2017-04-22] MEDS: SODIUM CHLORIDE 0.9% (FLUSH) 10 ML SYG IV SCH ×2 (02:06→08:52)
[2017-04-22] MEDS: PANTOPRAZOLE SODIUM TAB 40 MG PO SCH (06:36)
[2017-04-22] MEDS: LEVOTHYROXINE SODIUM 0.075 MG TAB PO SCH (06:36)
--- NOTE | 2017-04-22 07:32 | RAD ---
Procedure: XR CHEST 1 VIEW Exam Date: 04/22/2017 Ordering Provider: Pawel Craig NP Clinical Indication: chf Comparison: 04/21/2017 Findings: Residuals of thoracic surgery. Cardiac mediastinal silhouette is stable. Focal lung consolidation: Increased right basilar opacities may represent worsening edema. Bibasilar atelectasis. Pleural effusion: Small bilateral pleural effusions. Pneumothorax: None Bones and soft tissues: Unremarkable Impression: 1. Increased right basilar opacities may represent worsening edema. 2. Bibasilar atelectasis with small bilateral pleural effusions. Electronically signed by: Madi Harrison MD 04/22/2017 7:31 AM [facility]
[2017-04-22] MEDS ORDERED: SPIRONOLACTONE 25 MG TAB ONE (07:42)
[2017-04-22] MEDS ORDERED: SODIUM CHL 0.9% 50ML MIN-BAG+ 0 ML IVPB ONE (07:42)
[2017-04-22] MEDS ORDERED: cefTRIAXone SODIUM 1 GM VIAL ONE (07:42)
[2017-04-22] MEDS: ASPIRIN (CHEWABLE) 81 MG TAB PO SCH (08:51)
[2017-04-22] MEDS: SITagliptin 50 MG TAB PO SCH (08:51)
[2017-04-22] MEDS: DULoxetine HCL 30 MG CAP PO SCH (08:51)
[2017-04-22] MEDS: CARVEDILOL 3.125 MG TAB PO SCH (08:51)
[2017-04-22] MEDS: LISINOPRIL 5 MG TAB PO SCH (08:51)
[2017-04-22] MEDS: POLYETHYLENE GLYCOL 3350 17 GM PCKT PO SCH (08:52)
[2017-04-22] MEDS: CLOPIDOGREL 75 MG TAB PO SCH (08:52)
[2017-04-22] MEDS ORDERED: SPIRONOLACTONE 25 MG TAB PO SCH (09:00)
[2017-04-22] MEDS ORDERED: FUROSEMIDE INJ 40 MG/4 ML VIAL IV SCH (09:00)
[2017-04-22] MEDS: REMOVE OLD PATCH TOP SCH (09:00)
[2017-04-22 11:20] VITALS: BP 102/63
[2017-04-22] MEDS: HYDROcodone 5MG/APAP 325MG 1 EA TAB PO PRN ×3 (11:25→14:03)
--- NOTE | 2017-04-22 13:31 | DS ---
SUPERVISING PHYSICIAN: Jigar Jensen M.D. DISCHARGE DIAGNOSIS: 1. Acute on chronic congestive heart failure with severe dilated cardiomyopathy and significant valvular dysfunction. 2. Bilateral pleural effusions. 3. Chronic renal insufficiency worsening during hospital stay. 4. Hyponatremia and electrolyte imbalance. 5. Coronary artery disease. 6. Diabetes mellitus type 2 on oral therapy. 7. Hypertension. 8. Seasonal allergies. 9. Chronic anemia. HISTORY OF PRESENT ILLNESS: Ms. Joyce is a 72 year-old female patient that presented to the Emergency Room with her caregiver due to progressive and worsening shortness of breath and lower extremity edema. She has a significant history of congestive heart failure and takes about 80 mg of Lasix daily. About 1 month ago she was seen by Dr. Jony Moss, her vehicle fare collector. Her Digoxin was stopped due to poor perfusion. Her heart rate was in the 80s and her pulse rate was in the upper 30s. Since that time her caregiver states that she has progressively worsened. She was placed in the hospital on 04/17/17. HOSPITAL COURSE: The patient was diuresed heavily during her hospital stay. Dr. Moss was called at one point to discuss her case. He concurred with the current treatment at that time, however she continued to worsen throughout her stay. On day 5 of her stay, her pulmonary effusion was significantly worse. Dr. Higgins was consulted and he did a thoracentesis to remove fluid. They removed 900 mL and the patient was able to breathe somewhat better, however on day 6 she had nearly complete recurrence of her pulmonary effusion and pulmonary edema. Dr. Moss' office was called again due to her worsening kidney functions and continued heart failure. The family wanted aggressive measures with the exception of intubation if the patient needs that. Dr. Burch was the physician peritoneal dialysis registered nurse for Dr. Moss' office who indicated the patient should probably be transferred to [facility] for more aggressive treatment of her heart failure. This was discussed with the family and they concurred. DISCHARGE PLAN: The patient will be transferred to [facility] in care of Dr. Zapata and Dr. Burch for continued treatment of her heart failure. Dr. Solares will probably also be consulted for her worsening renal function. Upon her discharge from [facility], she should followup with Dr. Jensen in his clinic if she is able to do so. DISCHARGE MEDICATIONS: 1. Tylenol 500 mg p.o. p.r.n., p.o. t.i.d. 2. Aripiprazole 10 mg p.o. at bedtime. 3. Carvedilol 3.125 mg p.o. b.i.d. 4. Clopidogrel 75 mg p.o. daily. 5. Duloxetine 60 mg p.o. daily. 6. Loratadine 10 mg p.o. daily at bedtime. 7. Metformin 50 mg p.o. daily. 8. Omeprazole 50 mg p.o. daily. 9. MiraLAX 17 grams p.o. daily. 10. Simvastatin 20 mg p.o. daily at bedtime. 11. Januvia 100 mg 1 p.o. daily. 12. Aldactone [address] Moncho Jensen is the collaborating physician and available for consultation. #[id number] and [id number] [facility]
[2017-04-22 13:33] VITALS: TEMP 97.5
[2017-04-22 13:39] VITALS: O2SAT 99
[2017-04-22] MEDS ORDERED: HYDROcodone 5MG/APAP 325MG 1 EA TAB PO ONE (14:24)
== END 2017-04-22 14:13 | disposition short-term general hospital (02) | DRG 291 ==
LOC: MS 16:07
PROVIDERS: ADMIT Family Medicine; ATTEND Emergency Medicine
PROC: 0W993ZZ Drainage of Right Pleural Cavity, Percutaneous Approach (ICD-10-PCS; principal; 2017-04-17)
DX: I13.0 Hypertensive heart and chronic kidney disease with heart failure and stage 1 through stage 4 chronic kidney disease, or unspecified chronic kidney disease (principal); I50.23 Acute on chronic systolic (congestive) heart failure; J91.8 Pleural effusion in other conditions classified elsewhere; E87.1 Hypo-osmolality and hyponatremia; R18.8 Other ascites; I50.9 Heart failure, unspecified; N18.9 Chronic kidney disease, unspecified; I25.10 Atherosclerotic heart disease of native coronary artery without angina pectoris; E11.22 Type 2 diabetes mellitus with diabetic chronic kidney disease; J30.9 Allergic rhinitis, unspecified; D64.9 Anemia, unspecified; F79 Unspecified intellectual disabilities; I49.3 Ventricular premature depolarization; I34.0 Nonrheumatic mitral (valve) insufficiency; Z95.1 Presence of aortocoronary bypass graft; Z79.84 Long term (current) use of oral hypoglycemic drugs

== ENCOUNTER → 2017-07-05 | Outpatient (CLI) | payer MEDICARE, MEDICAID | LOC: LAB.O 15:04 | PROVIDERS: ATTEND Nurse Practitioner Family | DX: I42.7 Cardiomyopathy due to drug and external agent (principal) ==

== ENCOUNTER → 2017-07-10 | Outpatient (CLI) | payer MEDICARE, MEDICAID | LOC: LAB.O 16:50 | PROVIDERS: ATTEND Nurse Practitioner Family | DX: I50.43 Acute on chronic combined systolic (congestive) and diastolic (congestive) heart failure (principal) ==

== ENCOUNTER → 2017-07-11 | Outpatient (CLI) | payer MEDICARE, MEDICAID ==
--- NOTE | 2017-07-11 16:06 | MAM ---
DIAGNOSTIC BILATERAL MAMMOGRAMS HISTORY: ABNORMAL MAMMO COMPARISON: Screening mammograms of April 11, 2017 TECHNIQUE: Digital 2-D mammograms , and 3-D tomosynthesis,1 of both breasts were performed in CC and MLO orientations. Mammo CAD analysis also performed. FINDINGS: Extremely dense fibroglandular tissue again identified in both breasts. Stable skin thickening overlying both breasts. Numerous foci of benign microcalcifications and vascular calcifications again identified in both breasts. A biopsy clip again seen in left breast. No obvious mass lesion or concerning microcalcifications nor architectural distortion detected in either breast. IMPRESSION: No mammographic evidence of malignancy in either breast. BI-RADS: 2, benign findings. Follow-up: Annual surveillance recommended Electronically signed by: Johnnie Martinez MD 07/11/2017 4:05 PM RADIO TECHNICIAN
--- NOTE | 2017-07-11 16:32 | US ---
Renal ultrasound HISTORY: Chronic renal disease COMPARISON: CT of abdomen and pelvis from April 20, 2017 TECHNIQUE: Grayscale and color Doppler sonographic evaluations of kidneys and bladder. FINDINGS: Right kidney measures 9.4 cm in maximal span while left kidney measures 9.0 cm in maximal span. No concerning mass, hydronephrosis nor shadowing stone in either kidney. Mild cortical thinning with diffusely increased cortical echotexture bilaterally. Incidental note of mild to moderate ascites around liver and minimal amount in left lower abdomen.. Bladder demonstrates no obvious mucosal nor intraluminal abnormality. Prevoid volume of one 93 mL, and post void volume of 32 mL. IMPRESSION: 1. Changes of chronic renal disease bilaterally without concerning focal finding. 2. Minimal to mild intraperitoneal ascites 3. Unremarkable appearance of bladder. No significant post void residual. Electronically signed by: Johnnie Martinez MD 07/11/2017 4:31 PM STRUCTURAL MANAGER
== END ==
LOC: MAMMO 14:04
PROVIDERS: ATTEND Family Medicine
DX: N18.4 Chronic kidney disease, stage 4 (severe) (principal); R92.8 Other abnormal and inconclusive findings on diagnostic imaging of breast; R18.8 Other ascites
CPT/HCPCS: 76775; 77066; G0279

== ENCOUNTER → 2017-07-26 | Outpatient (CLI) | payer MEDICARE, MEDICAID | LOC: LAB.O 14:57 | PROVIDERS: ATTEND Nurse Practitioner Family | DX: I50.43 Acute on chronic combined systolic (congestive) and diastolic (congestive) heart failure (principal); D50.9 Iron deficiency anemia, unspecified ==

== ENCOUNTER → 2017-08-08 | Outpatient (CLI) | payer MEDICARE, MEDICAID | END | disposition home or self-care (01) | LOC: BFHH 12:02 | PROVIDERS: ATTEND Family Medicine | DX: I50.43 Acute on chronic combined systolic (congestive) and diastolic (congestive) heart failure (principal); N18.4 Chronic kidney disease, stage 4 (severe) ==

== ENCOUNTER → 2017-08-18 | Outpatient (CLI) | payer MEDICARE, MEDICAID | LOC: BFHH 15:10 | PROVIDERS: ATTEND Family Medicine | DX: N18.4 Chronic kidney disease, stage 4 (severe) (principal); I50.43 Acute on chronic combined systolic (congestive) and diastolic (congestive) heart failure ==

== ENCOUNTER → 2017-08-30 | Outpatient (CLI) | payer MEDICARE, MEDICAID | LOC: BFHH 14:46 | PROVIDERS: ATTEND Family Medicine | DX: I13.0 Hypertensive heart and chronic kidney disease with heart failure and stage 1 through stage 4 chronic kidney disease, or unspecified chronic kidney disease (principal); I50.42 Chronic combined systolic (congestive) and diastolic (congestive) heart failure ==

== ENCOUNTER → 2017-09-15 | Outpatient (CLI) | payer MEDICARE, MEDICAID | LOC: BFHH 14:44 | PROVIDERS: ATTEND Nurse Practitioner Family | DX: I13.0 Hypertensive heart and chronic kidney disease with heart failure and stage 1 through stage 4 chronic kidney disease, or unspecified chronic kidney disease (principal); N18.4 Chronic kidney disease, stage 4 (severe); D50.9 Iron deficiency anemia, unspecified ==

== ENCOUNTER → 2017-10-13 | Outpatient (CLI) | payer MEDICARE, MEDICAID | LOC: BFHH 12:11 | PROVIDERS: ATTEND Family Medicine | DX: R63.4 Abnormal weight loss (principal); B82.9 Intestinal parasitism, unspecified ==

== ENCOUNTER → 2017-10-25 | Outpatient (CLI) | payer MEDICARE, MEDICAID | LOC: BFHH 13:25 | PROVIDERS: ATTEND Nurse Practitioner Family | DX: B82.9 Intestinal parasitism, unspecified (principal) ==

== ENCOUNTER → 2017-10-26 | Outpatient (CLI) | payer MEDICARE, MEDICAID | LOC: BFHH 11:54 | PROVIDERS: ATTEND Nurse Practitioner Family | DX: E03.9 Hypothyroidism, unspecified (principal) ==

== ENCOUNTER → 2017-10-27 | Outpatient (CLI) | payer MEDICARE, MEDICAID ==
--- NOTE | 2017-10-28 07:06 | MRI ---
EXAM DESCRIPTION: Brain w/o Contrast: MRI. CLINICAL HISTORY: ABNORMAL WEIGHT LOSS COMPARISON: MRI brain without contrast 07/24/2009. TECHNIQUE: Multiplanar, high-field MRI unit, multiple diffusion sequences, multiple conventional sequences without contrast. FINDINGS: Bilateral small and medium-sized foci of hyperintense FLAIR and T2-weighted signal in the periventricular white matter and perez-white matter junctions of the cerebral hemispheres. Largest foci are in the bilateral frontal lobe periventricular white matter and subcortical white matter of the posterior left frontal lobe at the level of the ventricles. Lesions appear similar on the prior study. No hemorrhage, mass effect, or diffusion restriction . No significantly abnormal signal in the bilateral basal ganglia. No hemorrhage, no cerebral edema, no mass-effect. Normal signal in the brainstem and cerebellar hemispheres. No hemorrhage, no cerebral edema, no mass-effect. Concordance of the diffusion and non-diffusion sequences with no diffusion restriction. Cortical sulci, ventricles, and other CSF spaces, and the subdural spaces are normally configured for patients age. No effacement or displacement. No midline shift. No extra-axial hemorrhage. Normal flow signal void in the major vessels of the [place], and the venous sinuses. IACs are symmetric bilaterally. Minimal fluid signal in the posterior inferior right mastoid air cells. No mass effect in the bilateral cerebellopontine angles. Pituitary gland occupies most of the sella. Base of the cerebellar tonsils is at the level of the foramen magnum. Paranasal sinuses and left mastoid air cells are unremarkable. The bony calvarium is intact. IMPRESSION: 1. Stable bilateral focal white matter signal hyperintensities since the prior study which are most likely related to microvascular disease or inactive demyelinating process such as multiple sclerosis. Could also be related to old inflammatory process or vasculitis. No mass effect hemorrhage or cerebral edema. No hydrocephalus. 2. Minimal chronic versus acute inflammatory process right mastoid air cells. Electronically signed by: Meek Barrera MD 10/28/2017 7:04 AM CDT
== END ==
LOC: MRI 14:04
PROVIDERS: ATTEND Nurse Practitioner Family
DX: R63.4 Abnormal weight loss (principal)

== ENCOUNTER 2019-08-31 14:07 | Emergency (ER) | payer MEDICARE, MEDICAID ==
--- NOTE | 2019-08-31 15:18 | ED.PDOC ---
History of Present Illness - General Time Seen by Provider: 08/31/19 14:42 - History of Present Illness Initial Comments: 74-year-old female with history of CAD, CHF and CKD, [facility] for progressive "all over" swelling and chest discomfort over se veral days. Patient denies having chest pain today, although the [facility] reports she mentions severe pain early this morning. From review of medications, it appears her dose of diuretic was increased yesterday. no known COVID contacts at [place], she denies fever, but has cough. Allergies/Adverse Reactions: Allergies Codeine Allergy (Verified 08/31/19 14:39) NSAIDs Allergy (Verified 08/31/19 14:39) Ondansetron [From Zofran] Allergy (Verified 08/31/19 14:39) Penicillins Allergy (Verified 08/31/19 14:39) Tramadol Allergy (Verified 08/31/19 14:39) Home Medications: Ambulatory Orders RX: Aripiprazole 5 mg PO BEDTIME 03/13/17 RX: Clopidogrel Bisulfate [Plavix] 75 mg PO DAILY 03/13/17 RX: Carvedilol [Coreg] 3.125 mg PO BID #60 tab 03/16/17 RX: Ascorbic Acid [Vitamin C] 500 mg PO DAILY 08/06/19 RX: Aspirin [Aspirin Adult] 325 mg PO DAILY 08/06/19 RX: Digoxin 0.25 mg PO DAILY 08/06/19 RX: Esomeprazole Magnesium 40 mg PO DAILY 08/06/19 RX: Isosorbide Mononitrate [Imdur] 30 mg PO DAILY 08/06/19 RX: Lisinopril 2.5 mg PO DAILY #30 tab 08/11/19 RX: Potassium Chloride Tab [K-Dur] 20 meq PO DAILY #30 tab 08/11/19 metOLazone [Zaroxolyn] 2.5 mg PO DAILY #30 tab 08/11/19 Furosemide [Lasix] 80 mg PO DAILY 08/31/19 Review of Systems - Review of Systems Review of Systems: 08/31/19 15:17 General: Denies generalized weakness, fever, arthralgia/myalgia HEENT: Denies sore throat, rhinorrhea Cardiovascular: had chest pain, palpitations Respiratory: has SOB, cough Gastrointestinal: Denies abdominal pain, vomiting, diarrhea : Denies dysuria, frequency Musculoskeletal: Denies extremity pain, has extremity swelling Integument: Denies rash, itching Neuro: Denies focal weakness or numbness Psych: Denies depression, hallucinations. Past Medical History (General) - Patient Medical History Hx Seizures: No Hx Stroke: No Hx Dementia: No Hx Asthma: Yes Hx of COPD: No Hx Cardiac Disorders: Yes Hx Congestive Heart Failure: Yes Hx Pacemaker: No Hx Hypertension: Yes Hx Thyroid Disease: No Hx Diabetes: Yes Hx Gastroesophageal Reflux: Yes Hx Renal Disease: Yes Hx Cancer: No Hx of HIV: No Hx Hepatitis C: No Hx MRSA: No - Vaccination History Hx Tetanus, Diphtheria Vaccination: Yes Hx Influenza Vaccination: No Hx Pneumococcal Vaccination: No - Social History Hx Tobacco Use: No Hx Alcohol Use: No Hx Substance Use: No Hx Substance Use Treatment: No Hx Depression: No Hx Physical Abuse: No Hx Emotional Abuse: No Hx Suspected Abuse: No - Activities of Daily Living [facility]isted [facility] (if applicable):: [facility] (if applicable):: None - Female History Patient is a Female of Child Bearing Age (10 -59 yrs old): No Patient : No - Triage Comment ED Triage Comment: pt brought in via stretcher by EMS for worsening bilateral upper and lower extremity edema, abdominal edema. chf exacerbation. pt respirations shallow, o2 sat 96% on room air. Family Medical History - Family History Father Age (years): 67 Living Status: Cause of : CHF Hx Family Asthma: No Hx Family Congestive Heart Failure: Yes Hx Family Hypertension: No Hx Family Stroke: Yes Hx Cardiac Disease: Yes Hx Family Diabetes: Yes Hx Family Cancer: No Mother Family History: Unknown Living Status: Age at (years of age): 93 Cause of : CAD Hx Family Asthma: Yes Hx Family Congestive Heart Failure: No Hx Family Hypertension: No Hx Family Stroke: Yes Hx Cardiac Disease: Yes Hx Family Diabetes: No Hx Family Cancer: No Physical Exam - Physical Exam Comments: General Appearance: Patient is awake and alert. appears chronically ill. Skin: Warm and dry. No diaphoresis. No rash or other lesions. Head: Normocephalic/atraumatic. Eyes: PERRL, lids, conjunctiva and sclera unremarkable. EOMI intact. ENT: No nasal discharge. Oropharynx. Without erythema, exudate, lesions. Moist mucous membranes. Neck: Supple. No LAD. No tenderness. No JVD noted. Respiratory: Normal rate and effort. Breath sounds clear bilaterally. Cardiovascular: irregular, nl rate. GI: Abdomen soft, non-distended and non-tender. No rebound/guarding. Bowel sounds normal. Back: No tenderness Musculoskeletal: Extremities- Normal range of motion. has edema to ext, up to abdomen. Neurological: Alert. No facial palsy. Speech clear. Gag intact. No motor deficit, str symmetric. No sensory deficit. Progress - Progress Progress: 08/31/19 15:47 Vital Signs - 24 hr 08/31/19 08/31/19 08/31/19 14:52 15:10 15:16 Pulse Rate 69 Pulse Rate [ 70 69 69 brachial] Respiratory 16 16 Rate Blood Pressure 122/78 [Right Arm] O2 Sat by Pulse 96 Oximetry 08/31/19 14:45 Chest,1 View [RAD] Stat 08/31/19 15:32 Magnesium Sulfate Inj 2 gm Sodium Chloride 0.9% 100Ml [NS (NACL 0.9%) 100ml] 100 ml IVPB ONCE 08/31/19 15:37 Catheter:Agustin ONCE Laboratory Results WBC 5.1 K/mm3 (4.8-10.8) 08/31/19 14:50 RBC 3.05 M/mm3 (4.20-5.40) L 08/31/19 14:50 Hgb 9.7 gm/dL (12.0-16.0) L 08/31/19 14:50 Hct 29.1 % (36.0-47.0) L 08/31/19 14:50 MCV 95.4 fl (81.0-99.0) 08/31/19 14:50 MCH 31.9 pg (27.0-31.0) H 08/31/19 14:50 MCHC 33.4 g/dL (33.0-37.0) 08/31/19 14:50 RDW 15.6 % (11.5-14.5) H 08/31/19 14:50 Plt Count 184 K/mm3 (130-400) 08/31/19 14:50 MPV 7.2 fl (7.40-10.4) L 08/31/19 14:50 Absolute Neuts (auto) 3.90 K/uL (1.8-6.8) 08/31/19 14:50 Absolute Lymphs (auto) 0.50 K/uL (1.0-3.4) L 08/31/19 14:50 Absolute Monos (auto) 0.50 K/uL (0.2-0.8) 08/31/19 14:50 Absolute Eos (auto) 0.10 K/uL (0.0-0.4) 08/31/19 14:50 Absolute Basos (auto) 0.00 K/uL (0.0-0.1) 08/31/19 14:50 Neutrophils % 76.9 % (42.0-78.0) 08/31/19 14:50 Lymphocytes % 9.9 % (20.0-50.0) L 08/31/19 14:50 Monocytes % 10.1 % (2.0-9.0) H 08/31/19 14:50 Eosinophils % 2.2 % (1.0-5.0) 08/31/19 14:50 Basophils % 0.9 % (0.0-2.0) 08/31/19 14:50 Sodium 132 mmol/L (135-145) L 08/31/19 14:50 Potassium 4.3 mmol/L (3.6-5.0) 08/31/19 14:50 Chloride 101 mmol/L (101-111) 08/31/19 14:50 Carbon Dioxide 21 mmol/L (21-31) 08/31/19 14:50 Anion Gap 14.3 (12-18) 08/31/19 14:50 BUN 79 mg/dL (7-18) H 08/31/19 14:50 Creatinine 2.47 mg/dL (0.6-1.3) H 08/31/19 14:50 BUN/Creatinine Ratio 32.0 (10-20) H 08/31/19 14:50 Random Glucose 173 mg/dL (70-105) H 08/31/19 14:50 Serum Osmolality 292.3 mOsm/L (275-295) 08/31/19 14:50 Calcium 8.6 mg/dL (8.4-10.2) 08/31/19 14:50 Magnesium 2.1 mg/dL (1.8-2.5) 08/31/19 14:50 Total Bilirubin 0.7 mg/dL (0.2-1.0) 08/31/19 14:50 AST 20 IU/L (10-42) 08/31/19 14:50 ALT 18 IU/L (10-60) 08/31/19 14:50 Alkaline Phosphatase 91 IU/L (42-121) 08/31/19 14:50 Troponin I 0.05 ng/mL (0.01-0.05) 08/31/19 14:50 C-Reactive Protein 0.6 mg/dL (0-1.0) 08/31/19 14:50 B-Natriuretic Peptide 1190.0 pg/ml (0-100) H* 08/31/19 14:50 Serum Total Protein 6.6 gm/dL (6.4-8.2) 08/31/19 14:50 Albumin 3.2 g/dl (3.2-5.5) 08/31/19 14:50 Globulin 3.4 gm/dL (2.3-3.5) 08/31/19 14:50 Albumin/Globulin Ratio 0.9 (1.1-1.9) L 08/31/19 14:50 Urine Color Yellow (Yellow) 08/31/19 15:32 Urine Appearance Sl cloudy (Clear) 08/31/19 15:32 Urine pH 5.5 (4.5-7.8) 08/31/19 15:32 Ur Specific Bath 1.015 (1.005-1.030) 08/31/19 15:32 Urine Protein Negative mg/dL 08/31/19 15:32 Urine Glucose (UA) Negative mg/dL (Negative) 08/31/19 15:32 Urine Ketones Negative mg/dL (NEGATIVE) 08/31/19 15:32 Urine Blood Negative (Negative) 08/31/19 15:32 Urine Nitrite Negative 08/31/19 15:32 Urine Bilirubin Negative (NEGATIVE) 08/31/19 15:32 Urine Urobilinogen 0.2 mg/dL (0.2-1.0) 08/31/19 15:32 Ur Leukocyte Esterase Negative (Negative) 08/31/19 15:32 Urine RBC 0 /hpf 08/31/19 15:32 Urine WBC 0 /hpf 08/31/19 15:32 Ur Epithelial Cells 5-10 /hpf 08/31/19 15:32 Urine Bacteria 0 0425/20 15:32 Digoxin 3.5 ng/mL (1.0-2.0) H 08/31/19 14:50 08/31/19 15:47 Pulse rate has continue to be variable here, from 50s to 90s. EKG with multifocal PVCs junctional beats. No acute ischemia. Screening labs have returned with FRANCISCO, elevated digoxin level concerning for digoxin toxicity. Magnesium has been added, and is being given IV. She remains normotensive, perfusing and oxygenating well. Departure - Departure Clinical Impression: Digoxin toxicity, Acute kidney injury, Anasarca Disposition: Transfer to Hospital Condition: Serious Home Medications: Ambulatory Orders RX: Aripiprazole 5 mg PO BEDTIME 03/13/17 RX: Clopidogrel Bisulfate [Plavix] 75 mg PO DAILY 03/13/17 RX: Carvedilol [Coreg] 3.125 mg PO BID #60 tab 03/16/17 RX: Ascorbic Acid [Vitamin C] 500 mg PO DAILY 08/06/19 RX: Aspirin [Aspirin Adult] 325 mg PO DAILY 08/06/19 RX: Digoxin 0.25 mg PO DAILY 08/06/19 RX: Esomeprazole Magnesium 40 mg PO DAILY 08/06/19 RX: Isosorbide Mononitrate [Imdur] 30 mg PO DAILY 08/06/19 RX: Lisinopril 2.5 mg PO DAILY #30 tab 08/11/19 RX: Potassium Chloride Tab [K-Dur] 20 meq PO DAILY #30 tab 08/11/19 metOLazone [Zaroxolyn] 2.5 mg PO DAILY #30 tab 08/11/19 Furosemide [Lasix] 80 mg PO DAILY 08/31/19 Comments: Juan Manuel Nagy MD Emergency Medicine #[id number] Critical Care Note - Critical Care Note Total Time (mins): 35 Comments: indication: cardiac disturbance, renal insuff, req antiarrhythmic tx Transfer to Outside Facility - Transfer Information Decision to Transfer Date: 08/31/19 Decision to Transfer Time: 15:45 Reason for Transfer: specialized care not available Accepting Provider:: Fina Accepting Facility: [facility]
[2019-08-31] MEDS ORDERED: MAGNESIUM SULFATE INJ 2 GM in SODIUM CHLORIDE 0.9% 100ML 100 ML IVPB ONE (15:32)
[2019-08-31] MEDS ORDERED: MAGNESIUM SULFATE INJ 1 GM/2 ML VIAL ONE (15:35)
[2019-08-31] MEDS ORDERED: SODIUM CHLORIDE 0.9% 100ML 100 ML IVPB ONE (15:37)
[2019-08-31 16:00] VITALS: TEMP 97.8; O2SAT 99
--- NOTE | 2019-08-31 16:43 | RAD ---
EXAM: XR Chest, 1 View CLINICAL HISTORY: The patient is 74 years old and is Female; shortness of breath TECHNIQUE: Frontal view of the chest. COMPARISON: Chest radiograph August 10, 2019 FINDINGS: LUNGS: Mild diffuse interstitial opacities are present throughout the lungs. Left lower lobe opacity is noted. PLEURAL SPACE: Suggestion of a small left pleural effusion is present. No pneumothorax. HEART: The cardiac silhouette is enlarged. MEDIASTINUM: Unremarkable. BONES/JOINTS: Median sternotomy wires and vascular clips are present. IMPRESSION: Cardiomegaly with left lower lobe atelectasis/infiltrate and small left pleural effusion. The appearance is similar to prior exam. Electronically signed by: Pat Milner MD 08/31/2019 4:42 PM CDT
[2019-08-31 17:07] VITALS: BP 108/67
== END 2019-08-31 16:48 | disposition short-term general hospital (02) ==
LOC: ER 14:07
DX: T46.0X5A Adverse effect of cardiac-stimulant glycosides and drugs of similar action, initial encounter (principal); N17.9 Acute kidney failure, unspecified; R05 Cough; R60.1 Generalized edema; I10 Essential (primary) hypertension; I50.9 Heart failure, unspecified; E11.9 Type 2 diabetes mellitus without complications; Z79.899 Other long term (current) drug therapy
CPT/HCPCS: 71045; 80053; 80162; 81001; 83735; 83880; 84484; 85025; 86140; 93005; J3475; J7050

== ENCOUNTER 2019-09-20 10:02 | Inpatient (IN) | payer MEDICARE, MEDICAID ==
--- NOTE | 2019-09-20 10:17 | ED.PDOC ---
History of Present Illness - General Time Seen by Provider: 09/20/19 10:11 Additional Information: This is a 74-year-old female, with history of hypertension congestive heart failure renal disease not on dialysis, patient presenting today [facility] because of worsening generalized edema. Patient stated that she is noted that her abdomen is getting distended, and that the swelling is getting progressively worse, patient is a poor historian she is not sure of her medications that she is taking at the [facility]. Per patient stated that she has been seen in different hospitals for the same complaint. As far as we know patient does not have a history of liver disease - History of Present Illness Timing/Duration: other - Chronic Improving Factors: nothing Worsening Factors: nothing Allergies/Adverse Reactions: Allergies Codeine Allergy (Verified 08/31/19 14:39) NSAIDs Allergy (Verified 08/31/19 14:39) Ondansetron [From Zofran] Allergy (Verified 08/31/19 14:39) Penicillins Allergy (Verified 08/31/19 14:39) Tramadol Allergy (Verified 08/31/19 14:39) Home Medications: Ambulatory Orders Aripiprazole 5 mg PO BEDTIME 03/13/17 Clopidogrel Bisulfate [Plavix] 75 mg PO DAILY 03/13/17 Carvedilol [Coreg] 3.125 mg PO BID #60 tab 03/16/17 Ascorbic Acid [Vitamin C] 500 mg PO DAILY 08/06/19 Aspirin [Aspirin Adult] 325 mg PO DAILY 08/06/19 Esomeprazole Magnesium 40 mg PO DAILY 08/06/19 Isosorbide Mononitrate [Imdur] 30 mg PO DAILY 08/06/19 Lisinopril 2.5 mg PO DAILY #30 tab 08/11/19 Potassium Chloride Tab [K-Dur] 20 meq PO DAILY #30 tab 08/11/19 metOLazone [Zaroxolyn] 2.5 mg PO DAILY #30 tab 08/11/19 Benzonatate Perles [Tessalon Perles] 100 mg PO PRN 09/20/19 Bumetanide 2 mg PO BID 09/20/19 Ferrous Sulfate [Fe Tabs] 325 mg PO DAILY 09/20/19 Review of Systems - Review of Systems Constitutional: States: no symptoms reported EENTM: States: no symptoms reported Respiratory: States: no symptoms reported Cardiology: States: no symptoms reported Gastrointestinal/Abdominal: States: other - Distention Genitourinary: States: no symptoms reported Musculoskeletal: States: joint swelling Skin: States: no symptoms reported Neurological: States: no symptoms reported Endocrine: States: no symptoms reported Hematologic/Lymphatic: States: no symptoms reported Past Medical History (General) - Patient Medical History Hx Seizures: No Hx Stroke: No Hx Dementia: No Hx Asthma: Yes Hx of COPD: No Hx Cardiac Disorders: Yes Hx Congestive Heart Failure: Yes Hx Pacemaker: No Hx Hypertension: Yes Hx Thyroid Disease: No Hx Diabetes: Yes Hx Gastroesophageal Reflux: Yes Hx Renal Disease: Yes Hx Cancer: No Hx of HIV: No Hx Hepatitis C: No Hx MRSA: No - Vaccination History Hx Tetanus, Diphtheria Vaccination: Yes Hx Influenza Vaccination: No Hx Pneumococcal Vaccination: No - Social History Hx Tobacco Use: No Hx Alcohol Use: No Hx Substance Use: No Hx Substance Use Treatment: No Hx Depression: No Hx Physical Abuse: No Hx Emotional Abuse: No Hx Suspected Abuse: No - Female History Patient : No Family Medical History - Family History Mother Family History: Unknown Living Status: Age at (years of age): 93 Cause of : CAD Hx Family Asthma: Yes Hx Family Congestive Heart Failure: No Hx Family Hypertension: No Hx Family Stroke: Yes Hx Cardiac Disease: Yes Hx Family Diabetes: No Hx Family Cancer: No Father Age (years): 67 Living Status: Cause of : CHF Hx Family Asthma: No Hx Family Congestive Heart Failure: Yes Hx Family Hypertension: No Hx Family Stroke: Yes Hx Cardiac Disease: Yes Hx Family Diabetes: Yes Hx Family Cancer: No Physical Exam - Physical Exam General Appearance: Alert, Well Developed, Well Groomed, Well Hydrated Eye Exam: right other - Bilateral pedal edema, bilateral normal Ears, Nose, Throat: hearing grossly normal Neck: non-tender, full range of motion, supple Respiratory: chest non-tender, lungs clear, normal breath sounds, no respiratory distress, no accessory muscle use Cardiovascular/Chest: normal peripheral pulses, regular rate, rhythm, no edema, no gallop, no JVD, no murmur Peripheral Pulses: radial,right: 2+, radial,left: 2+ Gastrointestinal/Abdominal: normal bowel sounds, other - Abdominal distention with fluid wave positive Back Exam: normal inspection, no CVA tenderness, no vertebral tenderness Extremity: pedal edema, other Skin Exam: normal color, warm/dry Lymphatic: no adenopathy Progress - Progress Progress: 09/20/19 11:54 This is a 74-year-old female, presents to the ER because of generalized swelling, and coughing, no fever patient [facility] does have a history of renal disease and has a history of congestive heart failure, patient on physical exam was fully anasarca with bilateral pedal edema abdominal distention upper extremity edema and facial swelling, patient does have a dry cough with no fever, chest x-ray was read as pretty much unchanged from the previous x-ray, I check her kidney function that seems to be worsening from her last visit with a BMP in the thousands, I ordered an abdominal pelvic CT because of the abdominal distention but I suspect that this distention is due to fluid retention and not expecting any serious intra-abdominal abnormalities, case was consulted to the hospitalist for admission, given that patient is seems to be retaining fluid and having worsening edema plus anasarca Departure - Departure Clinical Impression: Anasarca Disposition: Admit Patient Referrals: [facility] [Primary Care Provider] - 1-2 Weeks Home Medications: Ambulatory Orders Aripiprazole 5 mg PO BEDTIME 03/13/17 Clopidogrel Bisulfate [Plavix] 75 mg PO DAILY 03/13/17 Carvedilol [Coreg] 3.125 mg PO BID #60 tab 03/16/17 Ascorbic Acid [Vitamin C] 500 mg PO DAILY 08/06/19 Aspirin [Aspirin Adult] 325 mg PO DAILY 08/06/19 Esomeprazole Magnesium 40 mg PO DAILY 08/06/19 Isosorbide Mononitrate [Imdur] 30 mg PO DAILY 08/06/19 Lisinopril 2.5 mg PO DAILY #30 tab 08/11/19 Potassium Chloride Tab [K-Dur] 20 meq PO DAILY #30 tab 08/11/19 metOLazone [Zaroxolyn] 2.5 mg PO DAILY #30 tab 08/11/19 Benzonatate Perles [Tessalon Perles] 100 mg PO PRN 09/20/19 Bumetanide 2 mg PO BID 09/20/19 Ferrous Sulfate [Fe Tabs] 325 mg PO DAILY 09/20/19 Decision To Admit - Decistion To Admit Decision to Admit Reason: Admit from ER Decision to Admit Date: 09/20/19 Decision to Admit Time: 11:55
[2019-09-20] MEDS ORDERED: cefTRIAXone SODIUM 1 GM in SODIUM CHL 0.9% 50ML MIN-BAG+ 50 ML IVPB ONE (10:59)
--- NOTE | 2019-09-20 11:01 | RAD ---
EXAM DESCRIPTION: Chest,1 View CLINICAL HISTORY: 74 years Female, edema COMPARISON: 08/31/2019. TECHNIQUE: AP radiograph of the chest was obtained. FINDINGS: Trachea is midline.The cardiomediastinal silhouette is enlarged in size. Bilateral pulmonary vascular congestion. Persistent bilateral lower lobe airspace opacities with possible effusions. IMPRESSION: Stable appearance of the chest compared to prior. Electronically signed by: Candace Morales MD 09/20/2019 10:59 AM CDT
[2019-09-20] MEDS ORDERED: cefTRIAXone SODIUM 1 GM VIAL ONE (11:03)
[2019-09-20] MEDS ORDERED: SODIUM CHL 0.9% 50ML MIN-BAG+ 50 ML IVPB ONE (11:03)
--- NOTE | 2019-09-20 12:25 | HP ---
SUPERVISING PHYSICIAN: Ministerio Lynch MD CHIEF COMPLAINT: Anasarca. HISTORY OF PRESENT ILLNESS: Ms. Joyce is a 74-year-old female patient with a history of hypertension and congestive heart failure and renal disease not currently on dialysis. She presented from [facility] to the Emergency Room due to worsening generalized edema. She noted her abdomen started getting distended and swelling but denied any actual pain. The patient is a poor historian and most of the record was obtained from Emergency Room notes and previous medical history. In looking at the notes and the past history, she has been on Zaroxolyn and Bumex. Echocardiogram was done in July 2019 showed an ejection fraction of 20 to 25% with a left systolic failure. She has been hospitalized previously for similar events. She was not showing any distress. Her vital signs were showing to be stable with temperature of 97, pulse 71, blood pressure 130/70, respirations 20, oxygen saturation 97% on room air. Chest x-ray per radiology interpretation was showing no acute changes and seemed to be stable from previous but some pulmonary vasculature, although was showing to be stable. 12-lead EKG was pending. Given the degree of edema and concerns for possibly developing pulmonary edema, the patient is going to be placed in observation for further telemetry and cardiac monitoring and evaluation. She was placed in observation in stable condition. PAST MEDICAL HISTORY: 1. Congestive heart failure with echocardiogram in July 2019 showing an ejection fraction of 20 to 25% with elevated BNP chronically. 2. History of hypernatremia. 3. Chronic renal insufficiency. 4. Diabetes mellitus, type 2. 5. History of chronic hypertension. 6. History of coronary artery disease with bypass grafting times 4 vessels. PAST SURGICAL HISTORY: 1. Coronary artery bypass grafting times 4 vessels. MEDICATIONS: Awaiting updated list from the retirement. ALLERGIES: CODEINE, NSAIDs, PENICILLINS, ONDANSETRON. FAMILY HISTORY: Positive for coronary artery disease, strokes and diabetes. SOCIAL HISTORY: The patient previously worked in retail. She has never drank alcohol or smoked tobacco. She currently resides at [facility]. She is single. REVIEW OF SYSTEMS: CONSTITUTIONAL: Positive for general malaise. Negative for any fevers, chills or unexplained weight loss. HEENT: She does have some chronic nasal congestion. Denies sore throats, earaches, vision changes, headaches. RESPIRATORY: Denies shortness of breath, orthopnea and exertional dyspnea at this point. No wheezing. CARDIOVASCULAR: Negative for chest pain, palpitations or syncopal episodes but does have extremity edema. GASTROINTESTINAL: Positive for distended abdomen but denies any pain, problems with constipation, diarrhea, nausea or vomiting. GENITOURINARY: Negative for dysuria, hematuria, polyuria. MUSCULOSKELETAL: Denies joint swelling, arthralgias. SKIN: Denies lesions, rashes, moles or unexplained changes. NEUROLOGIC: Chronic insomnia, but denies ataxia, seizures, focal deficits. HEMATOLOGIC: Denies unexplained bleeding, easy bruising. PHYSICAL EXAMINATION: VITAL SIGNS: Temperature 97.1, pulse 71, blood pressure 130/70, respirations 20, oxygen saturation 96% on room air. GENERAL: The patient appears to be resting comfortably, in no acute distress. She looks well-nourished, she is obviously edematous. HEENT: Oropharynx is pink, moist without any lesions. NECK: Supple. Nontender with full range of motion. No jugular venous distention. RESPIRATORY: Lung sounds diminished towards the bases but otherwise without rhonchi, rales, or wheezes. HEART: Regular rate and rhythm without appreciable murmurs, rubs, or gallops. ABDOMEN: Obese, distended, firm but non-tender with active bowel sounds. There is an obvious fluid wave on exam. BACK: Without CVA or vertebral tenderness. EXTREMITIES: With upper and lower extremity edema, 1+. SKIN: Warm, pink and dry with notable edema to upper and lower torso. LABORATORY: White count 5,000, hemoglobin 10.3, hematocrit 30.8, platelet count 211,000. Differential without a left shift. Chemistries show normal electrolytes. BUN 90, creatinine 3.18 with baseline creatinine around 1.94. Blood sugar 156, osmolality 31. Liver functions all within normal limits. Calcium 8.8. Troponin 0.03, BNP 1020. Albumin normal at 3.4. Urinalysis initially prior to cath showed moderate leukoesterase with a secured by WBCs, too numerous to count RBC, no epithelials, 2+ bacteria. Post cath showed small amount of leukoesterase, 1 to 3 RBC with 3 to 5 WBC, 3 to 5 epithelials and 1+ bacteria. MICROBIOLOGY: Blood cultures were pending. RADIOLOGY: Chest x-ray per radiologic interpretation showed stable appearance of the chest compared to previous on 08/31/19. Abdominal/pelvic CT without contrast per radiology interpretation shows psoriatic configuration of the liver with mild splenomegaly and large volume ascites with a small pleural effusion. Aerospace opacities in the bilateral lower lobes, mostly likely representing atelectasis. There was note of irregular contour of the uterine body with multiple calcifications probably secondary to fibroid. There is note of diffuse tissue edema of the chest wall and abdominal wall suggesting volume overload. ASSESSMENT: 1. Global anasarca with associated ascites, etiology uncertain. 2. Acute on chronic renal failure possibly due to prerenal azotemia with some intravascular dehydration as osmolality was showing to be elevated with nephrology consultation pending with patient on Bumex and Zaroxolyn. 3. Congestive heart failure with reduced ejection fraction, current echocardiogram in July showing 20 to 25% with elevated BNP on admission with no obvious signs of acute exacerbation. 4. Diabetes mellitus type 2. 5. Chronic hypertension. 6. History of coronary artery disease with previous bypass graft x4. PLAN: Ms. Joyce is going to be placed in observation. I did discuss the case with Dr. Solares, nephrology, who suggested the patient be saline-locked and hold any diuretics at this point with fluid restriction to see if she will reestablish fluid balance. He feels like she is intravascularly dry but she is previously on Bumex, although there is a question of whether she might not have been getting it at the retirement but will reevaluate in the morning. Her albumin at this point is showing normal but more likely it is falsely elevated due to the intravascular dehydration. If she does improve a little bit tomorrow, we will probably give her some albumin along with some Lasix to see if we can resolve some of the anasarca. I have consulted with Dr. Higgins in regard to the ascites further evaluation. We will hold Lovenox until Dr. Higgins can see her in the morning. She will be on insulin sliding scale per protocol. She is being tested for COVID-19 due to the fact that she is in the retirement. I anticipate her length of stay to be 1 to 2 days. We will revaluate in the morning. We will repeat labs. Until we can transition her to outpatient management, we will continue to monitor and treat as needed #[id number] [facility]
--- NOTE | 2019-09-20 12:26 | CT ---
EXAM DESCRIPTION: Abdoment/Pelvis w/o Contrast CLINICAL HISTORY: 74 years Female, Abdominal distention COMPARISON: Ct abdomen and pelvis dated 04/19/2017 TECHNIQUE: Contiguous 3 mm axial images were obtained from the lung bases to the level of the proximal femora without the administration of intravenous or oral contrast. Sagittal and coronal reconstructions were reviewed. FINDINGS: Limited evaluation of the solid organs due to the lack of intravenous contrast. THORAX: Heart is enlarged in size with no pericardial effusion. Small right pleural effusion. Airspace opacities in the bilateral lower lobes most likely represent atelectasis. LIVER: The liver demonstrates a nodular contour most likely representing cirrhosis. GALLBLADDER: Grossly unremarkable. PANCREAS: Not well-visualized probably due to diffuse atrophy SPLEEN: Mildly enlarged in size measuring 11.1 x 10.7 x 5.3 cm ADRENAL GLANDS: Normal with no nodules or masses. KIDNEYS: Both kidneys are symmetric in size and contour with no hydronephrosis or nephrolithiasis or perinephric fluid collections. The visualized ureters appear grossly unremarkable. STOMACH: Thickening of the distal esophagus could be secondary to reflux. The stomach is not well-distended limiting detailed evaluation. SMALL BOWEL: The small bowel loops demonstrate variable degrees of distention with no abnormal dilatation or other signs to suggest bowel obstruction. LARGE BOWEL: Mildly distended with no gross abnormality. No free intraperitoneal air. Large volume ascites. RETROPERITONEUM: The abdominal aorta is nonaneurysmal with moderate atherosclerosis. The inferior vena cava is normal in size and caliber. No abnormally enlarged retroperitoneal lymph nodes are identified. URINARY BLADDER:The urinary bladder is well-distended with no gross abnormality. Irregular contour of the uterine body with multiple calcifications could be secondary to fibroids. ADDITIONAL FINDINGS: Diffuse soft tissue edema throughout the visualized chest and abdomen.. BONES: Mild degenerative changes are identified in the visualized bones.No evidence of osteophytic or osteoblastic lesions. IMPRESSION: 1. Cirrhotic configuration of the liver with mild splenomegaly. Large volume ascites. 2. Small right pleural effusion. Airspace opacities in the bilateral lower lobes most likely represent atelectasis. 3. Irregular contour of the uterine body with multiple calcifications could be secondary to fibroids. 4. Diffuse soft tissue edema of the chest and abdominal wall suggestive of volume overload. This exam was performed according to our departmental dose-optimization program, which includes automated exposure control, adjustment of the mA and/or kV according to patient size and/or use of iterative reconstruction technique. Electronically signed by: Candace Morales MD 09/20/2019 12:24 PM CDT
[2019-09-20] MEDS ORDERED: SODIUM CHLORIDE 0.9% (FLUSH) 10 ML SYG IV PRN (15:33)
[2019-09-20] MEDS ORDERED: DEXTROSE 50% 25 GM/50 ML SYG IV PRN (15:37)
[2019-09-20] MEDS ORDERED: GLUCAGON INJ 1 MG VIAL SUBCU PRN (15:37)
[2019-09-20] MEDS: INSULIN LISPRO 100 UNITS/ML PEN SUBCU SCH ×2 (16:25→20:41)
[2019-09-20] MEDS: IV SET AND CAP CHANGE INJ INJ SCH (16:25)
[2019-09-20] MEDS: CARVEDILOL 3.125 MG TAB PO SCH (20:29)
[2019-09-20] MEDS: ACETAMINOPHEN 325 MG TAB PO PRN (20:47)
[2019-09-20] MEDS ORDERED: ZIPRASIDONE INJ 20 MG/ML VIAL IM ONE (23:50)
[2019-09-21] MEDS: INSULIN LISPRO 100 UNITS/ML PEN SUBCU SCH ×4 (07:14→20:51)
[2019-09-21] MEDS: ASPIRIN TABLET 325 MG TAB PO SCH (08:25)
[2019-09-21] MEDS: ISOSORBIDE MONONITRATE (IMDUR) 30 MG TAB PO SCH (08:25)
[2019-09-21] MEDS: CLOPIDOGREL 75 MG TAB PO SCH (08:25)
[2019-09-21] MEDS: CARVEDILOL 3.125 MG TAB PO SCH ×2 (08:25→20:50)
[2019-09-21] MEDS: LISINOPRIL 5 MG TAB PO SCH (08:26)
[2019-09-21] MEDS: ASCORBIC ACID 500 MG TAB PO SCH (08:26)
[2019-09-21] MEDS: ACETAMINOPHEN 325 MG TAB PO PRN ×2 (08:56→20:49)
--- NOTE | 2019-09-21 09:36 | RAD ---
PROCEDURE: XR Chest, 1 View CLINICAL INDICATION: The patient is 74 years old and is Female; CHF MAIN TECHNIQUE: Frontal view of the chest. COMPARISON: Comparison is made to the prior radiograph from one day earlier. FINDINGS: LUNGS: There is mild pulmonary vascular congestion, stable. PLEURAL SPACE: There is a worsening moderate LEFT pleural effusion. HEART: The heart size is enlarged. MEDIASTINUM: The mediastinal contour is normal. BONES/JOINTS: There are median sternotomy wires identified in the midline attesting to prior cardiac surgery. TUBES, LINES AND DEVICES: There are electrocardiogram leads present. IMPRESSION: There is a worsening moderate LEFT pleural effusion. Electronically signed by: Demetrio Frankel MD 09/21/2019 9:35 AM CDT
--- NOTE | 2019-09-21 10:07 | CONS ---
HISTORY OF PRESENT ILLNESS: The patient is a 74 year-old female who was admitted here, apparently to observation after she was sent from [facility] secondary to worsening edema. The patient also noted that her abdomen was distended and tight but denied pain. To me, she also admits to a nonproductive cough and states the food does not taste right. Apparently, there is no problem with her ability to smell. This morning, she said she had acute onset of back pain that has been treated. She was admitted for stabilization of her medical problems and I have been asked to see her to consider thoracentesis. PAST MEDICAL HISTORY: 1, Coronary artery bypass graft x4. 2. Congestive heart failure with a history of ejection fraction of 20 to 25%. 3. History of hypernatremia with chronic renal insufficiency. 4. Type 2 diabetes. 5. Hypertension. CURRENT MEDICATIONS: [facility]. ALLERGIES: CODEINE, NSAIDS, PENICILLIN, ONDANSETRON. FAMILY HISTORY: Positive for diabetes, coronary artery disease and vascular event. SOCIAL HISTORY: The patient is single. She worked in retail. There is no history of alcohol abuse or smoking. No history of drug abuse. REVIEW OF SYSTEMS: Difficult to obtain. She does complain of the nonproductive cough but no shortness of breath or chest pain. She denies nausea or vomiting, constipation, diarrhea or change in bowel habits. She denies abdominal pain, dysuria or polyuria. PHYSICAL EXAMINATION: VITAL SIGNS: She is afebrile, normotensive. GENERAL: She is awake, in minimal distress from her back. She is cooperative but has difficulty answering questions. HEENT: Sclera is nonicteric. Mucous membranes are moist. NECK: Without adenopathy. BACK: Non-tender. CHEST: Increased breath sounds at the base. HEART: Regular rate and rhythm. ABDOMEN: Distended, firm, non-tender. Bowel sounds are active. EXTREMITIES: Without clubbing or cyanosis, she has 1+ edema. PELVIC/RECTAL: Exam deferred. LABORATORY: Urine showed too numerous to count white cells, 2+ bacteria, moderate leukocyte esterase, specific gravity of 1.015. Liver functions were within normal limits with a normal bilirubin. BNP on admission was 1,020. Albumin 3.2, protein 6.5 this morning, sodium 136, potassium 4.3, creatinine elevated at 3.19. Blood sugars run from 120s to 170s. White blood cell count this morning is 4.6 with 71% neutrophils. Hemoglobin 9.6. Platelet count 185,000. Coagulation studies revealed PT of 12.7, INR 1.2, PTT 39.9. CT scan revealed the ascites with no obstruction, small right pleural effusion, a psoriatic appearing liver and a mildly enlarged spleen. IMPRESSION: 1. Renal insufficiency. 2. Congestive heart failure with elevated BNP. 3. History of hypertension. 4. Coronary artery disease. 5. Ascites. 6. Apparent liver disease. PLAN: At this point, we are uncertain of which diuretics the patient has been on and the patient also is said to have been taking aspirin and another antiplatelet drug. With this and probable portal hypertension secondary to liver disease, she is at high risk for a paracentesis and I would certainly not consider it without ultrasound guidance, there is consideration for the addition of spironolactone to her diuretics if she has not been on it. Otherwise, we will follow the patient with you. MICROBIOLOGY: She does apparently have a urinary tract infection so this will be followed also. #[id number] [facility]
[2019-09-21] MEDS ORDERED: SODIUM CHL 0.9% 50ML MIN-BAG+ 50 ML IVPB ONE (10:16)
[2019-09-21] MEDS ORDERED: cefTRIAXone SODIUM 1 GM VIAL ONE (10:17)
[2019-09-21] MEDS: cefTRIAXone SODIUM 1 GM in SODIUM CHL 0.9% 50ML MIN-BAG+ 50 ML IVPB SCH (10:20)
[2019-09-21] MEDS: SODIUM CHLORIDE 0.9% 1000ML 1,000 ML IVS PRN (10:20)
[2019-09-21] MEDS ORDERED: ACETAMINOPHEN IV 1000MG 1,000 MG in PREMIX BOTTLE 1 BOTTLE IVPB ONE (12:02)
[2019-09-21] MEDS ORDERED: ACETAMINOPHEN IV 1000MG 100 ML ONE (12:10)
--- NOTE | 2019-09-21 15:50 | PN ---
SUPERVISING PHYSICIAN: Ministerio Lynch MD DATE: 09/21/19 SUBJECTIVE: The patient seems to be doing a little bit better today. She is much more alert, she knows my name. She appears to be back to her baseline mental status. She notes she feels like she is still quite sore in her belly but not having any pain. She did report some back pain that resolved with Tylenol. She remains afebrile. OBJECTIVE: VITAL SIGNS: Temperature 97.8, pulse 60, blood pressure 125/75, respirations 16, oxygen saturation 94% on room air. I&O: negative balance of 675 with 300 in and 1025 out. Weight is at 71.6 kg. GENERAL: The patient is resting comfortably and does not appear to be in any acute distress. CHEST: Lung sounds are diminishing toward the bases bilaterally but no rhonchi, rales, or wheezes noted. HEART: Regular rate and rhythm. ABDOMEN: Tight, distended with hypoactive bowel sounds but non-tender on palpation. EXTREMITIES: Lower extremities show to be without edema today. Upper extremities show 1+ bilaterally. SKIN: Warm, pink and dry. LABORATORY: White count 4,600, hemoglobin 9.6, hematocrit 28.7, platelet count 185,000, differential shows to be without a left shift. Coagulation showed slightly elevated PT/PTT. Chemistries showed normal electrolytes, BUN 91, creatinine 3.19. Osmolality 303, liver functions still remain within normal limits. Albumin down slightly to 3.2. MICROBIOLOGY: Urine cultures pending. RADIOLOGY: Chest x-ray this morning per radiology interpretation showed worsening moderate left pleural effusion. ASSESSMENT: 1. Anasarca with associated ascites, etiology uncertain showing slight improvement with conservative treatment. 2. Large volume ascites awaiting consultation with Dr. Higgins, general surgeon. 3. Acute on chronic renal failure showing to be fairly stable, likely more of an exacerbation due to prerenal azotemia with patient showing to be intravascularly dry with elevated osmolality with patient having previously been on Bumex and Zaroxolyn. 4. Left-sided pleural effusion without any signs of respiratory compromise,likely complications from underlying ascites. 5. Congestive heart failure with reduced ejection fraction, last echocardiogram in July showing 20 to 25% ejection fraction with elevated BNP on admission with no obvious signs of acute exacerbation. 6. Diabetes mellitus type 2 showing to be stable. 7. Urinary tract infection with cultures pending. 8. Chronic hypertension, stable. 9. History of coronary artery disease with previous bypass graft x4. PLAN: Will continue current plan of care at this point with observation. I did talk to Dr. Solares. He wants to go ahead and try some low fluids, will do normal saline at 50 an hour, watch her output close and clinically monitor. Hopefully, tomorrow if she does show improvement, then we can probably try some albumin along with some spironolactone or appropriate diuretic to see if we can continue to move fluid in the right direction. We will wait and see what Dr. Higgins's recommendations are as far as the ascites. Will still hold the Lovenox awaiting Dr. Higgins's consultation. COVID-19 is still pending due to the fact she is from a longterm. I anticipate at least another 24 to 48 hours and will reevaluate in the morning. Until then, we will continue to monitor and treat as needed. #[id number] [facility]
[2019-09-21] MEDS: ENOXAPARIN SODIUM 40 MG/0.4 ML SYG SUBCU SCH (20:50)
[2019-09-22] MEDS: SODIUM CHLORIDE 0.9% 1000ML 1,000 ML IVS PRN (05:30)
[2019-09-22] MEDS: INSULIN LISPRO 100 UNITS/ML PEN SUBCU SCH ×4 (07:16→21:09)
[2019-09-22] MEDS ORDERED: SODIUM CHL 0.9% 50ML MIN-BAG+ 50 ML IVPB ONE (08:28)
[2019-09-22] MEDS ORDERED: cefTRIAXone SODIUM 1 GM VIAL ONE (08:29)
[2019-09-22] MEDS: ASCORBIC ACID 500 MG TAB PO SCH (08:32)
[2019-09-22] MEDS: CARVEDILOL 3.125 MG TAB PO SCH ×2 (08:32→21:08)
[2019-09-22] MEDS: ASPIRIN TABLET 325 MG TAB PO SCH (08:32)
[2019-09-22] MEDS: ISOSORBIDE MONONITRATE (IMDUR) 30 MG TAB PO SCH (08:32)
[2019-09-22] MEDS: LISINOPRIL 5 MG TAB PO SCH (08:32)
[2019-09-22] MEDS: CLOPIDOGREL 75 MG TAB PO SCH (08:32)
[2019-09-22] MEDS: ACETAMINOPHEN 325 MG TAB PO PRN ×3 (08:32→21:08)
[2019-09-22] MEDS: cefTRIAXone SODIUM 1 GM in SODIUM CHL 0.9% 50ML MIN-BAG+ 50 ML IVPB SCH (09:35)
--- NOTE | 2019-09-22 15:51 | PN ---
SUPERVISING PHYSICIAN: Ministerio Lynch MD DATE: 09/22/19 SUBJECTIVE: The patient is up in the chair today. Her edema seems to be improved except for the ascites and now she showed to just be edematous on the left extremity but no pain, no complaints. She does lay on that left side quite a bit. She is not reporting any numbness or any sensory changes. She has some nausea but that resolved when she sit up to a chair without any intervention. Otherwise, she has no complaints of chest pain or shortness of breath. OBJECTIVE: VITAL SIGNS: Temperature 98.2, pulse 66, blood pressure 120/75, respirations 20, oxygen saturation 94% on room air. GENERAL: The patient is resting comfortably and does not appear to be in any acute distress. She is sitting in the chair watching TV. She is alert. CHEST: Lung sounds are just diminished toward the bases, no obvious rales or rhonchi. HEART: Regular rate and rhythm. ABDOMEN: Tight, distended with hypoactive bowel sounds but non-tender on palpation. EXTREMITIES: All extremities except the left side look to be back to normal appearance without any edema. Left upper extremity does show edema from the shoulder down, worse is 1+. SKIN: Warm, pink and dry. NEUROLOGIC: She is alert and oriented x3 with no obvious motor or focal deficits. LABORATORY: White count 4,600, hemoglobin 9.9, hematocrit 28.7, platelet count 185,000, differential shows to be without a left shift. Chemistries showed normal electrolytes, BUN 90, creatinine 3.07 which is down slightly from yesterday. Blood sugars range between 107 and 188. Albumin down to 3.0. MICROBIOLOGY: Urine cultures pending. RADIOLOGY: No additional studies today. ASSESSMENT: 1. Anasarca with associated ascites, etiology uncertain showing slight improvement with conservative treatment, resolving except for residual edema to the left upper extremity pending ultrasound findings. 2. Large volume ascites, etiology uncertain, patient being followed by Dr. Higgins with possible paracentesis on Monday. . 3. Acute on chronic renal failure showing some response with fluids, slowly returning to baseline with patient remaining intravascularly dehydrated likely causing exacerbation due to prerenal azotemia with patient appearing to have been on Bumex and Zaroxolyn. 4. Left-sided pleural effusion without any signs of respiratory compromise,likely complications from underlying ascites. 5. Congestive heart failure with reduced ejection fraction, last echocardiogram in July showing 20 to 25% ejection fraction with elevated BNP on admission with no obvious signs of acute exacerbation. 6. Diabetes mellitus type 2 showing to be stable. 7. Urinary tract infection with cultures pending. 8. Chronic hypertension, stable. 9. History of coronary artery disease with previous bypass graft x4. PLAN: Will continue to follow patient along with Dr. Higgins. I believe Dr. Higgins wants to do a guided ultrasound paracentesis on Monday. Given the patient's risk factors we will go ahead and recheck a PT/PTT along with basic chemistries to include a BNP and magnesium. I would anticipate she will be able to transfer back to the skilled nursing at least in the next 1 to 2 days. We will await Dr. Higgins's further recommendations. Her COVID-19 did come back negative, therefore she is in a regular room and out of airborne isolation. Until we can transition her to outpatient management, we will continue to monitor and treat as needed. #[id number] [facility]
[2019-09-22] MEDS: ENOXAPARIN SODIUM 40 MG/0.4 ML SYG SUBCU SCH (21:08)
[2019-09-23] MEDS: SODIUM CHLORIDE 0.9% 1000ML 1,000 ML IVS PRN (01:00)
[2019-09-23] MEDS: INSULIN LISPRO 100 UNITS/ML PEN SUBCU SCH ×4 (07:03→21:27)
[2019-09-23] MEDS ORDERED: SODIUM CHL 0.9% 50ML MIN-BAG+ 50 ML IVPB ONE (09:09)
[2019-09-23] MEDS ORDERED: cefTRIAXone SODIUM 1 GM VIAL ONE (09:10)
[2019-09-23] MEDS: CLOPIDOGREL 75 MG TAB PO SCH (09:22)
[2019-09-23] MEDS: cefTRIAXone SODIUM 1 GM in SODIUM CHL 0.9% 50ML MIN-BAG+ 50 ML IVPB SCH (09:22)
[2019-09-23] MEDS: CARVEDILOL 3.125 MG TAB PO SCH ×2 (09:22→21:27)
[2019-09-23] MEDS: ACETAMINOPHEN 325 MG TAB PO PRN ×2 (09:22→17:54)
[2019-09-23] MEDS: LISINOPRIL 5 MG TAB PO SCH (09:22)
[2019-09-23] MEDS: ASCORBIC ACID 500 MG TAB PO SCH (09:22)
[2019-09-23] MEDS: ISOSORBIDE MONONITRATE (IMDUR) 30 MG TAB PO SCH (09:22)
--- NOTE | 2019-09-23 10:17 | RAD ---
EXAM DESCRIPTION: Chest,1 View CLINICAL HISTORY: Pleural effusion FINDINGS/ IMPRESSION: Comparison 09/21/2019 Opacity of the mid to lower left hemithorax likely pleural effusion as well as underlying atelectasis/infiltrate. Given the differences in positioning, similar appearance. Small right pleural effusion blunting the costophrenic angle, better appreciated on today's study No pneumothorax Prior cardiac surgery. Cardiomegaly. Slightly lesser degree of vascular congestion and prior study Electronically signed by: Jadon Diehl MD 09/23/2019 9:54 AM CDT
[2019-09-23] MEDS: FUROSEMIDE INJ 40 MG/4 ML VIAL IV SCH ×2 (13:07→17:17)
--- NOTE | 2019-09-23 13:35 | US ---
EXAM DESCRIPTION: Venous,Upper Extremity LT: ULTRASOUND. CLINICAL HISTORY: r/o DVT COMPARISON: None Available. TECHNIQUE: Two -dimensional and doppler sonographic evaluation of the deep venous system of the left upper extremity. FINDINGS: Doppler evaluation shows normal color flow and normal phasicity and augmentation of the left subclavian, jugular, axillary, basilic, brachial, radial vein and ulnar vein. Cephalic vein was not visualized. The left upper extremity deep veins showed normal occlusion with transducer pressure. Two-dimensional survey showed no echogenic thrombus within these veins. IMPRESSION: Duplex ultrasound evaluation of the left upper extremity deep venous system showing no thrombosis or pseudoaneurysm . Electronically signed by: Meek Barrera MD 09/23/2019 1:33 PM CDT
--- NOTE | 2019-09-23 13:46 | PN ---
SUPERVISING PHYSICIAN: Jigar Jensen MD DATE: 09/23/19 SUBJECTIVE: The patient actually feels like she is having a little bit more shortness of breath. She has no complaints of fever. Appetite has not been affected as of yet. OBJECTIVE: VITAL SIGNS: Blood pressure 128/79. Heart rate 68. Respiratory rate 20. Temperature 98.0. Oxygen saturation 94%. GENERAL: Ms. Joyce is a 74-year-old female in no active distress. NEUROLOGIC: Alert. LUNGS: Diminished bases, left greater than right. CARDIOVASCULAR: Regular rate and rhythm. Normal S1, S2. ABDOMEN: Distended, protuberant with positive bowel sounds. EXTREMITIES: Lower extremities with no significant edema. Pulses 2+. Capillary refill is less than 2 seconds. LABORATORY: White count 4.6, hemoglobin 9.2, hematocrit 27.7, platelet count 156. INR 1.33. Chemistry shows BUN 80, creatinine 2.78. Chest x-ray done and appears slightly improved from previous x-ray. ASSESSMENT: 1. Anasarca with associated ascites, showing some mild improvement. 2. Acute on chronic renal failure with slight improvement. 3. Left sided pleural effusion. 4. Cardiomyopathy with an ejection fraction of 20-25%. 5. Diabetes mellitus, type 2. 6. Urinary tract infection. 7. Hypertension. 8. History of coronary artery disease. PLAN: I spoke with Dr. Solares this morning regarding resuming diuretics. He preferred to wait until after a paracentesis/thoracentesis. I discussed with Dr. Higgins as well who prefers to hold off on the thoracentesis/paracentesis and resume diuretics. Therefore, I am going to start the patient on some furosemide and Aldactone. I am stopping IV fluids at the request of Dr. Solares. We will get repeat labs in the morning as well. [id number]
[2019-09-23] MEDS: IV SET AND CAP CHANGE INJ INJ SCH (16:35)
[2019-09-23] MEDS: SPIRONOLACTONE 25 MG TAB PO SCH (17:17)
[2019-09-23] MEDS: ENOXAPARIN SODIUM 40 MG/0.4 ML SYG SUBCU SCH (21:27)
[2019-09-24] MEDS: INSULIN LISPRO 100 UNITS/ML PEN SUBCU SCH ×4 (07:08→21:22)
[2019-09-24] MEDS ORDERED: SODIUM CHL 0.9% 50ML MIN-BAG+ 50 ML IVPB ONE (08:39)
[2019-09-24] MEDS ORDERED: cefTRIAXone SODIUM 1 GM VIAL ONE (08:41)
[2019-09-24] MEDS: ASCORBIC ACID 500 MG TAB PO SCH (09:46)
[2019-09-24] MEDS: ACETAMINOPHEN 325 MG TAB PO PRN (09:46)
[2019-09-24] MEDS: FUROSEMIDE INJ 40 MG/4 ML VIAL IV SCH ×2 (09:46→16:55)
[2019-09-24] MEDS: SPIRONOLACTONE 25 MG TAB PO SCH ×2 (09:46→16:56)
[2019-09-24] MEDS: LISINOPRIL 5 MG TAB PO SCH (09:46)
[2019-09-24] MEDS: ISOSORBIDE MONONITRATE (IMDUR) 30 MG TAB PO SCH (09:46)
[2019-09-24] MEDS: CLOPIDOGREL 75 MG TAB PO SCH (09:46)
[2019-09-24] MEDS: CARVEDILOL 3.125 MG TAB PO SCH ×2 (09:46→21:18)
[2019-09-24] MEDS: cefTRIAXone SODIUM 1 GM in SODIUM CHL 0.9% 50ML MIN-BAG+ 50 ML IVPB SCH (09:46)
--- NOTE | 2019-09-24 15:37 | PN ---
SUPERVISING PHYSICIAN: Jigar Jensen MD DATE: 09/24/19 SUBJECTIVE: The patient states she feels better today with decreasing shortness of breath. She has diuresed and has a negative balance for the last 24 hours. OBJECTIVE: VITAL SIGNS: Blood pressure 112/76. Heart rate 58. Respiratory rate 18. Temperature 97.8. Oxygen saturation 96%. GENERAL: Ms. Joyce is a 74-year-old female in no active distress. NEUROLOGIC: Alert. LUNGS: Diminished bases, but otherwise clear to auscultation bilaterally. CARDIOVASCULAR: Regular rate and rhythm. Normal S1, S2. ABDOMEN: Still protuberant. No tenderness to palpation. Positive bowel sounds. EXTREMITIES: Lower extremities with no significant edema. LABORATORY: This morning, chemistry shows improvement in BUN of 77 and creatinine 2.62. ASSESSMENT: 1. Anasarca with associated ascites with mild improvement. 2. Acute on chronic renal failure with slight improvement. 3. Left sided pleural effusion with no change on yesterday's x-ray. 4. Cardiomyopathy with an ejection fraction of 20-25%. 5. Diabetes mellitus, type 2. 6. Urinary tract infection, which is Escherichia coli with sensitivity to Rocephin. 7. Hypertension. 8. History of coronary artery disease. PLAN: Given the fact that we stopped the IV fluids yesterday and started diuresis once again, she does have what appears to be a stabilizing renal function. We will continue the diuretics for now. I spoke with Dr. Higgins once again. He wishes to reevaluate the chest x-ray tomorrow, which I agree with. At that point, if there is continued improvement and clinical improvement, I would imagine she could probably be discharged on Lasix and Aldactone as well as antibiotics for the urinary tract infection. Additionally, we will need to discuss plan of care with primary care physician as well as family members if they are available. [id number]
[2019-09-24] MEDS: ENOXAPARIN SODIUM 40 MG/0.4 ML SYG SUBCU SCH (21:21)
[2019-09-25] MEDS ORDERED: SODIUM CHL 0.9% 50ML MIN-BAG+ 50 ML IVPB ONE (07:15)
[2019-09-25] MEDS ORDERED: cefTRIAXone SODIUM 1 GM VIAL ONE (07:16)
[2019-09-25] MEDS: INSULIN LISPRO 100 UNITS/ML PEN SUBCU SCH (07:24)
--- NOTE | 2019-09-25 07:28 | RAD ---
EXAM: XR Chest, 1 View CLINICAL HISTORY: The patient is 74 years old and is Female; pleural effusion TECHNIQUE: Frontal view of the chest. COMPARISON: Chest radiograph from 09/23/2019 FINDINGS: LIMITATIONS: The patient is rotated. LUNGS: Minimal right basilar opacity and mild retro-cardiac opacity on the left, suggesting atelectasis. The upper lungs are clear. PLEURAL SPACE: Probable small bilateral pleural effusions again demonstrated. No pneumothorax. HEART: Stable enlargement of the cardiac silhouette. MEDIASTINUM: Unremarkable. BONES/JOINTS: Poststernotomy changes. IMPRESSION: Small bilateral pleural effusions with mild bibasilar atelectasis. Findings appear similar to the prior exam. Electronically signed by: Nilsa Arevalo MD 09/25/2019 7:26 AM CDT
[2019-09-25] MEDS ORDERED: HYDROcodone 5MG/APAP 325MG 1 EA TAB PO PRN (08:46)
[2019-09-25] MEDS: CLOPIDOGREL 75 MG TAB PO SCH (09:05)
[2019-09-25] MEDS: SPIRONOLACTONE 25 MG TAB PO SCH (09:05)
[2019-09-25] MEDS: LISINOPRIL 5 MG TAB PO SCH (09:06)
[2019-09-25] MEDS: ASCORBIC ACID 500 MG TAB PO SCH (09:06)
[2019-09-25] MEDS: ISOSORBIDE MONONITRATE (IMDUR) 30 MG TAB PO SCH (09:06)
[2019-09-25] MEDS: CARVEDILOL 3.125 MG TAB PO SCH (09:06)
[2019-09-25] MEDS: FUROSEMIDE INJ 40 MG/4 ML VIAL IV SCH (09:07)
[2019-09-25 10:10] VITALS: BP 121/68; TEMP 98.3; O2SAT 92
--- NOTE | 2019-09-25 10:28 | DS ---
SUPERVISING PHYSICIAN: Jigar Jensen MD ADMISSION DIAGNOSIS: 1. Global anasarca with associated ascites. 2. Acute on chronic renal failure. 3. Congestive heart failure with a reduced ejection fraction of 20-25%. 4. Diabetes mellitus, type 2. 5. History of chronic hypertension. 6. History of coronary artery disease. DISCHARGE DIAGNOSIS: 1. Anasarca with associated ascites. 2. Acute on chronic renal failure. 3. Left sided pleural effusion. 4. Cardiomyopathy with ejection fraction of 20-25%. 5. Diabetes mellitus, type 2. 6. Escherichia coli urinary tract infection. 7. Hypertension. 8. History of coronary artery disease. HOSPITAL COURSE: This is a 74-year-old female who is a resident at [facility] who came to the Emergency Room for worsening generalized edema. She had noted abdominal swelling as well as her extremities. The patient is a poor historian and is not able to provide a whole lot of insight, however, per the records, [facility]. In the Emergency Room, her workup included x-rays as well as CT scans and labs. Her CT scan showed mild bilateral pleural effusions and some ascites. Labs showed an elevation of BUN and creatinine above her baseline. Therefore, she was admitted and actually the diuretics were stopped and she was placed on IV fluids initially. Dr. Solares was consulted. After a couple of days on low-dose IV fluids, the IV fluids were discontinued. Dr. Solares was contacted and we agreed to place the patient on Aldactone and furosemide. The finding on her CT scan of the abdomen and pelvis showed nodular contour consistent with cirrhosis, however, the etiology of the cirrhosis is not known at this point. After being placed on the diuretics, she improved regarding shortness of breath and her feeling of stomach fullness. Dr. Higgins was also consulted for potential paracentesis, however, in his evaluation, he felt it was more beneficial to start the diuretics. She was placed on IV Lasix and Aldactone as stated above and had subsequent improvement in not only her clinical presentation, but she had a reduction in her weight as well. Additionally, she did not complain of any shortness of breath and felt as though her abdomen was less full than it was before. On the day of discharge, which is today, she continues to have improvement in her BUN and creatinine from admission. Chest x-ray is really unchanged from two days ago and is consistent with bilateral atelectasis and also pleural effusion. Therefore, we will discharge her today in stable condition back to [facility]. I have changed the Bumex and Zaroxolyn that she was on to Lasix and Aldactone. She can continue the diet she was previously on and increase activity as tolerated. Due to the coronavirus, the visitation here at the hospital has been modified. I did attempt to call the medical power of family law attorney, which per the chart shows to be Bishop Shaw, phone number [phone]. I have attempted to contact that number on three separate occasions this morning to discuss discharge and each time, it has gone directly to [email or web address] and states the voice mailbox is full. We will go ahead and proceed with [facility] with the new medications. I have also written for antibiotics to treat her urinary tract infection which shows to be E. coli with near pansensitivity with only resistance to tetracycline. I will start her on Ceftin for that as she was on ceftriaxone here in the hospital. [facility][id number] [facility]
== END 2019-09-25 18:55 | DRG 433 ==
LOC: ER 10:02 → UNDOADMOB 12:23 → MS 12:23 → INTOOBSV 09-21 18:55 → OBSVTOIN 09-21 18:55 → UNDOADMOB 09-21 18:55 → MS 09-21 18:55 → UNDODISIN 09-25 10:50
PROVIDERS: ADMIT Nurse Practitioner Family; ATTEND Nurse Practitioner
DX: K74.60 Unspecified cirrhosis of liver (principal); I13.0 Hypertensive heart and chronic kidney disease with heart failure and stage 1 through stage 4 chronic kidney disease, or unspecified chronic kidney disease; K76.6 Portal hypertension; R18.8 Other ascites; N17.9 Acute kidney failure, unspecified; N39.0 Urinary tract infection, site not specified; I42.9 Cardiomyopathy, unspecified; I50.20 Unspecified systolic (congestive) heart failure; R60.0 Localized edema; E11.22 Type 2 diabetes mellitus with diabetic chronic kidney disease; N18.9 Chronic kidney disease, unspecified; B96.20 Unspecified Escherichia coli [E. coli] as the cause of diseases classified elsewhere; I25.10 Atherosclerotic heart disease of native coronary artery without angina pectoris; Z66 Do not resuscitate; Z88.5 Allergy status to narcotic agent; Z88.6 Allergy status to analgesic agent; Z88.0 Allergy status to penicillin; Z88.8 Allergy status to other drugs, medicaments and biological substances

== ENCOUNTER 2019-09-29 02:05 | Emergency (ER) | payer MEDICARE, MEDICAID ==
[2019-09-29] MEDS ORDERED: EPINEPHrine INJ 0.1 MG/ML 10 ML SYG IV ONE ×2 (02:10→02:34)
[2019-09-29] MEDS ORDERED: SODIUM BICARBONATE VIAL 50 MEQ/50 ML VIAL IV ONE ×2 (02:14→02:34)
--- NOTE | 2019-09-29 02:57 | RAD ---
EXAM: Chest,1 View 09/29/2019 at 2:40 AM HISTORY: CPR COMPARISON: Chest one view 09/25/2019 TECHNIQUE: Chest one view portable AP supine FINDINGS: Markedly limited exam due to underlying board. ETT tip at distal trachea. Heart size upper limits normal. Marked dense lung opacities at right upper, right lower, left mid, and left lower lung guerrier. Bilateral costophrenic angle blunting. No pneumothorax is seen on supine exam. Sternotomy and mediastinal surgical clips suggest CABG. IMPRESSION: Markedly limited exam due to underlying board. 1. Marked dense lung opacities at right upper, right lower, left mid, and left lower lung guerrier. This may represent airspace pulmonary edema and/or multifocal consolidations. 2. Small bilateral pleural effusions cannot be excluded. 3. CABG. 4. ETT tip at distal trachea. Follow up exam recommended after removal of underlying board. Electronically signed by: Madi Mallory MD 09/29/2019 2:56 AM CDT
--- NOTE | 2019-09-29 02:59 | ED.PDOC ---
History of Present Illness - General Chief Complaint: Cardiac Respiratory Arrest Time Seen by Provider: 09/29/19 02:46 Source: EMS, [facility] records - History of Present Illness Initial Comments: 74 yo female with PMH of HTN, CHF, CKD who was brought in by EMS from [facility] for chief complaint of sudden collapse and unresponsiveness. Patient was reportedly witnessed by staff to suddenly turn blue in the face and collapse while walking approximately 30 minutes prior to ED arrival. Reportedly CPR was begun right away and EMS notified 15 minutes after collapse. Transported to the ED with CPR continued in route, patient intubated in route, given 2 rounds of epinephrine 1 mg IO to the right humerus. There were no reported complaints of the patient prior to her collapse. In the ED, patient was noted on arrival to continue to be unresponsive with bilateral fixed dilated pupils and lack of gag reflex with ET tube in place and no spontaneous movement or respiratory effort ever noted. She was also noted to be markedly edematous throughout. CPR was continued for approximately 10 minutes with several more rounds of epinephrine and 1 amp of bicarb IO. Patient did achieve ROSC briefly. Was noted to be in accelerated junctional rhythm initially with a measurable normal range blood pressure and strong carotid pulse. However, she continued to be markedly hypoxic 60 to 70% SPO2 on 100% oxygen. She also continued to lack a gag reflex and remained with fixed dilated pupils and with lack of spontaneous respiratory effort. CXR revealed marked diffuse bilateral pulmonary edema and good position of the ET tube. Assisted ventilations at 100% oxygen were continued to be delivered in another 1 amp of bicarb was given IO. However she continued to decompensate despite all aggressive measures and to a junctional bradycardic rhythm with worsening hypoxia and hypotension and she again went into cardiac arrest at approximately 2:10 AM. It was discovered that patient did have an hospital DNR order in the ED records and the decision was made to honor the patient's wishes, especially given that any further resuscitation attempts would very likely be futile in nature. At 2:15 AM on September 29, 2019 the patient was pronounced by myself. Allergies/Adverse Reactions: Allergies Codeine Allergy (Verified 08/31/19 14:39) NSAIDs Allergy (Verified 08/31/19 14:39) Ondansetron [From Zofran] Allergy (Verified 08/31/19 14:39) Penicillins Allergy (Verified 08/31/19 14:39) Tramadol Allergy (Verified 08/31/19 14:39) Home Medications: Ambulatory Orders Aripiprazole 5 mg PO BEDTIME 03/13/17 Clopidogrel Bisulfate [Plavix] 75 mg PO DAILY 03/13/17 Carvedilol [Coreg] 3.125 mg PO BID #60 tab 03/16/17 Ascorbic Acid [Vitamin C] 500 mg PO DAILY 08/06/19 Aspirin [Aspirin Adult] 325 mg PO DAILY 08/06/19 Esomeprazole Magnesium 40 mg PO DAILY 08/06/19 Isosorbide Mononitrate [Imdur] 30 mg PO DAILY 08/06/19 Lisinopril 2.5 mg PO DAILY #30 tab 08/11/19 Benzonatate Perles [Tessalon Perles] 100 mg PO PRN 09/20/19 Ferrous Sulfate [Fe Tabs] 325 mg PO DAILY 09/20/19 Cefuroxime Axetil [Ceftin] 500 mg PO Q12H 7 Days #14 tablet 09/25/19 Furosemide 40 mg PO BID 30 Days #60 tab 09/25/19 Spironolactone [Aldactone] 25 mg PO 0900,1700 30 Days #60 tab 09/25/19 Review of Systems - Review of Systems Review of Systems: 09/29/19 02:59 Unable to obtain given patient's status Unable to Obtain Due To: intubated, clinical condition Past Medical History (General) - Patient Medical History Hx Seizures: No Hx Stroke: No Hx Dementia: No Hx Asthma: Yes Hx of COPD: No Hx Cardiac Disorders: Yes Hx Congestive Heart Failure: Yes Hx Pacemaker: No Hx Hypertension: Yes Hx Thyroid Disease: No Hx Diabetes: Yes Hx Gastroesophageal Reflux: Yes Hx Renal Disease: Yes Hx Cancer: No Hx of HIV: No Hx Hepatitis C: No Hx MRSA: No - Vaccination History Hx Tetanus, Diphtheria Vaccination: Yes Hx Influenza Vaccination: No Hx Pneumococcal Vaccination: No - Social History Hx Tobacco Use: No Hx Alcohol Use: No Hx Substance Use: No Hx Substance Use Treatment: No Hx Depression: No Hx Physical Abuse: No Hx Emotional Abuse: No Hx Suspected Abuse: No - Female History Patient : No Family Medical History - Family History Mother Family History: Unknown Living Status: Age at (years of age): 93 Cause of : CAD Hx Family Asthma: Yes Hx Family Congestive Heart Failure: No Hx Family Hypertension: No Hx Family Stroke: Yes Hx Cardiac Disease: Yes Hx Family Diabetes: No Hx Family Cancer: No Father Age (years): 67 Living Status: Cause of : CHF Hx Family Asthma: No Hx Family Congestive Heart Failure: Yes Hx Family Hypertension: No Hx Family Stroke: Yes Hx Cardiac Disease: Yes Hx Family Diabetes: Yes Hx Family Cancer: No Physical Exam - Physical Exam General Appearance: Other - unresponsive, pale, edematous, no spontaneous movement or respiratory effort Eye Exam: bilateral abnormal pupil - fixed and dilated BL Ears, Nose, Throat: other - ET tube in place markedly limiting exam, no foreign bodies noted, large frothy/pink fluid coming up through ET tube Neck: supple, normal inspection Respiratory: other - air movement appreciated throughout, marked rales and rhonchi throughout and expiratory wheezing noted Cardiovascular/Chest: other - pulseless on arrival, 2+ pitting edema to BL LE up to the pt's thighs Peripheral Pulses: radial,right: 0, radial,left: 0, femoral,right: 0, femoral,left: 0, dorsalis pedis,right: 0, dorsalis pedis,left: 0, posterior tibialis,right: 0, posterior tibialis,left: 0 Gastrointestinal/Abdominal: no pulsatile mass, distended Back Exam: normal inspection Extremity: pedal edema, other - all extremities appeared pale and cool on arrival, no spontaneous movement noted Neurologic: other - GCS 3 on arrival, no spontaneous movement, no response to painful stimuli, lack of CN function, lack of brainstem reflexes Skin Exam: cyanosis, mottled, pallor Progress - Progress Progress: 09/29/19 03:04 Cardiac arrest -Primary etiology is uncertain. Suspect likely massive PE versus ACS versus congestive heart failure. Consider also sepsis, metabolic acidosis, other. -Labs revealed d-dimer 3980, lactate 9.4, troponin 0.25. CXR BL pulmonary edema. -As per HPI, patient unfortunately despite CPR and ACLS measures which [facility] initiated at the [facility] and continued here upon arrival and then discontinued after discovery of the patient's in hospital DNR paperwork and with the realization that further attempts would be futile in nature. -Next of kin notified. Ronnell Barton MD Billing #[id number] 09/29/19 02:33 Telemetry .ONCE B-TYPE NATRIURETIC PEPTIDE/BNP Stat CARDIAC PANEL,ER Stat HEPATIC FUNCTION PANEL Stat EKG Stat Pulse Ox Stat 09/29/19 02:34 EKG Assessment ONCE Pulse Oximetry Assessment DAILY 09/29/19 02:58 Capnography .ONCE Laboratory Results - last 24 hr 09/29/19 09/29/19 09/29/19 02:33 02:34 02:34 WBC 6.7 RBC 3.54 L Hgb 11.3 L Hct 35.4 L MCV 100.1 H MCH 31.9 H MCHC 31.8 L RDW 18.0 H Plt Count 137 MPV 8.0 Absolute Neuts (auto) 4.20 Absolute Lymphs (auto) 1.90 Absolute Monos (auto) 0.30 Absolute Eos (auto) 0.10 Absolute Basos (auto) 0.10 Neutrophils % 63.5 Lymphocytes % 28.9 Monocytes % 4.8 Eosinophils % 1.4 Basophils % 1.4 D-Dimer, Quantitative 3980 H* Sodium 139 Potassium 4.9 Chloride 105 Carbon Dioxide 19 L Anion Gap 19.9 H BUN 72 H Creatinine 2.51 H BUN/Creatinine Ratio 28.7 H Random Glucose 192 H Serum Osmolality 303.9 H Lactic Acid 9.4 H* Calcium 8.2 L Magnesium 2.4 Total Bilirubin 0.5 Direct Bilirubin 0.2 Indirect Bilirubin 0.3 AST 37 ALT 19 Alkaline Phosphatase 116 Creatine Kinase 122 CK-MB (CK-2) 8.2 H* CK-MB (CK-2) % Not Reportable Troponin I 0.25 H* B-Natriuretic Peptide 1230.0 H* Serum Total Protein 6.8 Albumin 3.0 L - EKG/XRAY/CT EKG: Tachy - Accelerated junctional rhythm, HR 110, no ST elevations or Q waves noted, right axis deviation, QRS slightly prolonged 128 msec, appears unchanged from 08/31/19 EKG. Departure - Departure Clinical Impression: Cardiac arrest, Time of Disposition: 02:15 Disposition: Home Medications: Ambulatory Orders Aripiprazole 5 mg PO BEDTIME 03/13/17 Clopidogrel Bisulfate [Plavix] 75 mg PO DAILY 03/13/17 Carvedilol [Coreg] 3.125 mg PO BID #60 tab 03/16/17 Ascorbic Acid [Vitamin C] 500 mg PO DAILY 08/06/19 Aspirin [Aspirin Adult] 325 mg PO DAILY 08/06/19 Esomeprazole Magnesium 40 mg PO DAILY 08/06/19 Isosorbide Mononitrate [Imdur] 30 mg PO DAILY 08/06/19 Lisinopril 2.5 mg PO DAILY #30 tab 08/11/19 Benzonatate Perles [Tessalon Perles] 100 mg PO PRN 09/20/19 Ferrous Sulfate [Fe Tabs] 325 mg PO DAILY 09/20/19 Cefuroxime Axetil [Ceftin] 500 mg PO Q12H 7 Days #14 tablet 09/25/19 Furosemide 40 mg PO BID 30 Days #60 tab 09/25/19 Spironolactone [Aldactone] 25 mg PO 0900,1700 30 Days #60 tab 09/25/19 Critical Care Note - Critical Care Note Total Time (mins): 30 Comments: Critical Care Time: Upon my evaluation, this patient had a high probability of life-threatening deterioration due to cardiac arrest, which required my direct attention, intervention, and management. I have provided 30 minutes of critical care time exclusive of separately billable procedures. My time included: direct patient care, review of labs and radiology, discussion with other medical personnel, documentation, and monitoring for potential decompensation.
[2019-09-29 03:25] VITALS: TEMP 95.1
[2019-09-29 04:31] VITALS: BP 0/0; O2SAT 0
== END 2019-09-29 02:45 | disposition expired ==
LOC: ER 02:05
DX: I46.9 Cardiac arrest, cause unspecified (principal); I13.0 Hypertensive heart and chronic kidney disease with heart failure and stage 1 through stage 4 chronic kidney disease, or unspecified chronic kidney disease; N18.9 Chronic kidney disease, unspecified; I50.9 Heart failure, unspecified; Z79.899 Other long term (current) drug therapy